=== PATIENT | female | born 1975 | race Caucasian/White ===

== ENCOUNTER 2019-03-03 04:05 | Emergency (ER) | payer SELFPAY ==
[2019-03-03 05:00] LABS: Absolute Lymphocytes (CBC) 2.1 K/uL (0.7-4.9); Basophils % 1.8 % (0-1.3); Hematocrit 26.8 % (36.0-45.0); Lymphocytes % 25.2 % (15.3-44.8); MPV 7.2 fL (7.6-11.3); RBC Red Blood Cell Count 3.89 M/uL (3.86-4.86)
[2019-03-03 05:18] LABS: ALT/SGPT 22 U/L (12-78); AST/SGOT 17 U/L (15-37); Albumin 3.5 g/dL (3.4-5.0); Alkaline Phosphatase 97 U/L (45-117); BUN Blood Urea Nitrogen 19 mg/dL (7-18); Bicarbonate 27 mmol/L (21-32); Bilirubin Direct 0.1 mg/dL (0-0.2); Bilirubin Total 0.2 mg/dL (0.2-1.0); CKMB Creatine Kinase MB 1.3 ng/mL (0.3-3.6); Creatine Phosphokinase 111 U/L (26-192); Glucose Level 79 mg/dL (74-106); Lipase 159 U/L (73-393); NT PRO-BNP 365 pg/mL (<125); Potassium 3.2 mmol/L (3.5-5.1); Protein, Total 7.6 g/dL (6.4-8.2); Sodium Level 142 mmol/L (136-145); Troponin (Emerg Dept Use Only) < 0.02 ng/mL (0.0-0.045)
[2019-03-03 05:49] LABS: Blood Morphology Comment NOTED (NOT SEEN); Platelet Estimate INCR; Urine White Blood Cell Casts OK
[2019-03-03 05:50] LABS: Hypochromasia 1+
--- NOTE | 2019-03-03 06:30 | EDPHYS ---
Physician Documentation [facility] Name: Gabriella Herman Age: 43 yrs Sex: Female : 1975 Arrival Date: 03/03/2019 Time: 04:07 Bed 14 Private MD: ED Physician Dago Tracy HPI: 03/03 04:42 This 43 yrs old Female presents to ER via Ambulatory with complaints of tw4 Abnormal labs, Shortness Of Breath. 04:42 The patient has shortness of breath with light activity. tw4 04:42 Onset: The symptoms/episode began/occurred 2 week(s) ago. Duration: The symptoms are tw4 continuous. The patient's shortness of breath is aggravated by exertion, is alleviated by sitting up. Associated signs and symptoms: The patient has no apparent associated signs or symptoms. Severity of symptoms: At their worst the symptoms were moderate in the emergency department the symptoms have improved. The patient has not experienced similar symptoms in the past. Historical: - Allergies: 04:10 No Known Allergies; jb4 - Home Meds: 04:10 amlodipine 5 mg tab [Active]; jb4 - PMHx: 04:10 Hypertension; jb4 - PSHx: 04:10 Tubal ligation; jb4 - Immunization history:: Adult Immunizations up to date. - Social history:: Smoking status: Patient uses tobacco products, smokes one pack cigarettes per day. Patient uses street drugs, Methamphetamine (Meth) Patient/guardian denies using alcohol. - Ebola Screening: : No symptoms or risks identified at this time. ROS: 04:42 Constitutional: Negative for fever, chills, and weight loss, Eyes: Negative for injury, tw4 pain, redness, and discharge, Cardiovascular: Negative for chest pain, palpitations, and edema, Abdomen/GI: Negative for abdominal pain, nausea, vomiting, diarrhea, and constipation, Back: Negative for injury and pain, MS/Extremity: Negative for injury and deformity. 04:42 Respiratory: Positive for shortness of breath, Negative for cough, dyspnea on exertion, hemoptysis, orthopnea, pleurisy. Exam: 04:42 Constitutional: This is a well developed, well nourished patient who is awake, alert, tw4 and in no acute distress. Head/Face: Normocephalic, atraumatic. Chest/axilla: Normal chest wall appearance and motion. Nontender with no deformity. No lesions are appreciated. Cardiovascular: Regular rate and rhythm with a normal S1 and S2. No gallops, murmurs, or rubs. Normal PMI, no JVD. No pulse deficits. Respiratory: Lungs have equal breath sounds bilaterally, clear to auscultation and percussion. No rales, rhonchi or wheezes noted. No increased work of breathing, no retractions or nasal flaring. Abdomen/GI: Soft, non-tender, with normal bowel sounds. No distension or tympany. No guarding or rebound. No evidence of tenderness throughout. Back: No spinal tenderness. No costovertebral tenderness. Full range of motion. MS/ Extremity: Pulses equal, no cyanosis. Neurovascular intact. Full, normal range of motion. Neuro: Awake and alert, GCS 15, oriented to person, place, time, and situation. Cranial nerves II-XII grossly intact. Motor strength 5/5 in all extremities. Sensory grossly intact. Cerebellar exam normal. Normal gait. Vital Signs: 04:10 BP 181 / 101; Pulse 99; Resp 16; Temp 97.9(O); Pulse Ox 100% on R/A; Weight 67.59 kg jb4 (R); Height 5 ft. 4 in. (162.56 cm) (R); Pain 3/10; 05:15 BP 143 / 79; Pulse 91; Resp 14; Pulse Ox 97% on R/A; jb4 06:00 BP 158 / 90; Pulse 84; Resp 16; Pulse Ox 98% on R/A; jb4 04:10 Body Mass Index 25.58 (67.59 kg, 162.56 cm) jb4 MDM: 04:13 Patient medically screened. tw4 04:42 Differential diagnosis: Anemia asthma, Chronic Obstructive Pulmonary Disease Myocardial tw4 Infarction pneumonia, reactive airway disease. Data reviewed: vital signs, nurses notes. 05:50 Counseling: I had a detailed discussion with the patient and/or guardian regarding: the tw4 historical points, exam findings, and any diagnostic results supporting the discharge/admit diagnosis. 03/03 04:14 Order name: Blood Culture Adult (2) tw4 03/03 04:14 Order name: BMP tw4 03/03 04:14 Order name: CBC with Diff 4 03/03 04:14 Order name: Ckmb 03/03 04:14 Order name: CPK 03/03 04:14 Order name: D-Dimer 03/03 04:14 Order name: Hepatic Function 03/03 04:14 Order name: Lipase; Complete Time: 06:18 03/03 06:19 Interpretation: Within normal limits: LIP 159. 03/03 04:14 Order name: Magnesium; Complete Time: 06:18 03/03 04:14 Order name: NT PRO-BNP; Complete Time: 06:18 03/03 04:14 Order name: PT-INR; Complete Time: 06:18 03/03 04:14 Order name: Ptt, Activated; Complete Time: 06:18 03/03 04:14 Order name: Troponin (emerg Dept Use Only); Complete Time: 06:18 03/03 04:15 Order name: Blood Culture 03/03 04:14 Order name: XRAY CXR (1 view) 03/03 04:14 Order name: EKG; Complete Time: 04:15 03/03 04:14 Order name: Cardiac monitoring; Complete Time: 05:03 03/03 04:14 Order name: EKG - Nurse/Tech; Complete Time: 05:03 03/03 04:14 Order name: IV Saline Lock; Complete Time: 05:03 03/03 04:14 Order name: Labs collected and sent; Complete Time: 05:09 03/03 04:14 Order name: O2 Per Protocol; Complete Time: 05:09 03/03 04:14 Order name: O2 Sat Monitoring; Complete Time: 05:10 03/03 04:15 Order name: Basic Metabolic Panel; Complete Time: 06:18 03/03 06:18 Interpretation: Normal except: K 3.2; BUN 19; CL 109; GFR 56. 03/03 04:15 Order name: CBC with Automated Diff; Complete Time: 06:18 MS 03/03 06:19 Interpretation: Normal except: HGB 8.6; HCT 26.8; MCV 68.9; MCH 22.0; PLT 725; RDW tw4 17.8; MPV 7.2; BASO% 1.8. 03/03 04:15 Order name: CKMB Creatine Kinase MB; Complete Time: 06:18 EDMS 03/03 04:15 Order name: Creatine Phosphokinase; Complete Time: 06:18 EDMS 03/03 04:15 Order name: D-Dimer; Complete Time: 06:18 EDMS 03/03 06:19 Interpretation: Abnormal: D-DIMER 1975. tw4 03/03 04:15 Order name: Liver (Hepatic) Function; Complete Time: 06:18 EDMS 03/03 06:19 Interpretation: Normal except: GLOB 4.1; A/G 0.9. tw4 03/03 05:13 Order name: CBC Smear Scan; Complete Time: 06:18 EDMS EC:57 Rate is 88 beats/min. Rhythm is regular. QRS [place] is Normal. MN interval is normal. QT tw4 interval is normal. No Q waves. T waves are Normal. No ST changes noted. Clinical impression: NSR w/ Non-specific ST/T Changes. Interpreted by me. Reviewed by me. Administered Medications: No medications were administered Disposition: 03/03/19 06:29 Discharged to Home. Impression: Dyspnea, Anemia in chronic diseases classified elsewhere. - Condition is Stable. - Discharge Instructions: Anemia, Nonspecific, Shortness of Breath, [id number]. - Medication Reconciliation Form, Thank You Letter, Antibiotic Education, Prescription Opioid Use form. - Follow up: Private Physician; When: Upon discharge from the Emergency Department; Reason: Recheck today's complaints, Continuance of care. - Problem is new. - Symptoms have improved. Signatures: Dispatcher [facility] Lira RN RN jb4 Dago Tracy MD MD tw4 Corrections: (The following items were deleted from the chart) 06:54 06:29 03/03/2019 06:29 Discharged to Home. Impression: Dyspnea; Anemia in chronic jb4 diseases classified elsewhere. Condition is Stable. Forms are Medication Reconciliation Form, Thank You Letter, Antibiotic Education, Prescription Opioid Use. Follow up: Private Physician; When: Upon discharge from the Emergency Department; Reason: Recheck today's complaints, Continuance of care. Problem is new. Symptoms have improved. tw4
--- NOTE | 2019-03-03 06:30 | ER ---
Nurse's Notes [facility] Name: Gabriella Herman Age: 43 yrs Sex: Female : 1975 Arrival Date: 03/03/2019 Time: 04:07 Bed 14 Private MD: Diagnosis: Dyspnea;Anemia in chronic diseases classified elsewhere Presentation: 03/03 04:10 Presenting complaint: Patient states: I was recently at the clinic and had some blood jb4 work done after I told them I was in pain. The called me back last night and told me my hemoglobin was low at 8.7, she said my platelets were very very high, and that I had blood in my urine. My lower back is also hurting. 04:10 Transition of care: patient was not received from another setting of care. Onset of jb4 symptoms was February 24, 2019. Risk Assessment: Do you want to hurt yourself or someone else? Patient reports no desire to harm self or others. Initial Sepsis Screen: Does the patient meet any 2 criteria? HR > 90 bpm. Yes Does the patient have a suspected source of infection? No. Patient's initial sepsis screen is negative. Care prior to arrival: None. 04:10 Method Of Arrival: Ambulatory jb4 04:10 Acuity: YONIS 3 jb4 Triage Assessment: 04:10 Respiratory: Reports shortness of breath on exertion Onset: The symptoms/episode jb4 began/occurred gradually, the patient has mild shortness of breath. Historical: - Allergies: 04:10 No Known Allergies; jb4 - Home Meds: 04:10 amlodipine 5 mg tab [Active]; jb4 - PMHx: 04:10 Hypertension; jb4 - PSHx: 04:10 Tubal ligation; jb4 - Immunization history:: Adult Immunizations up to date. - Social history:: Smoking status: Patient uses tobacco products, smokes one pack cigarettes per day. Patient uses street drugs, Methamphetamine (Meth) Patient/guardian denies using alcohol. - Ebola Screening: : No symptoms or risks identified at this time. Screenin:10 Abuse screen: Denies threats or abuse. Nutritional screening: No deficits noted. jb4 Tuberculosis screening: No symptoms or risk factors identified. Fall Risk None identified. Assessment: 04:10 General: Appears in no apparent distress. uncomfortable, Behavior is cooperative, jb4 anxious. Pain: Complains of pain in low back area Pain does not radiate. Pain currently is 3 out of 10 on a pain scale. Neuro: Level of Consciousness is awake, alert, obeys commands, Oriented to person, place, time, situation. Cardiovascular: Patient's skin is warm and dry. Respiratory: Airway is patent Respiratory effort is even, unlabored, Respiratory pattern is regular, symmetrical, Breath sounds are clear bilaterally. GI: No signs and/or symptoms were reported involving the gastrointestinal system. : No signs and/or symptoms were reported regarding the genitourinary system. EENT: No signs and/or symptoms were reported regarding the EENT system. Derm: Skin is intact, Skin is pink, warm \T\ dry. Musculoskeletal: Circulation, motion, and sensation intact. Range of motion: intact in all extremities. 04:30 Cardiovascular: Rhythm is sinus rhythm. jb4 05:29 Reassessment: Patient appears in no apparent distress at this time. Patient and/or jb4 family updated on plan of care and expected duration. Pain level reassessed. Patient is alert, oriented x 3, equal unlabored respirations, skin warm/dry/pink. 06:48 Reassessment: Patient appears in no apparent distress at this time. Patient and/or jb4 family updated on plan of care and expected duration. Pain level reassessed. Patient is alert, oriented x 3, equal unlabored respirations, skin warm/dry/pink. PT verbalized understanding of d/c and follow up instructions. Verbalized no questions or concerns. Vital Signs: 04:10 BP 181 / 101; Pulse 99; Resp 16; Temp 97.9(O); Pulse Ox 100% on R/A; Weight 67.59 kg jb4 (R); Height 5 ft. 4 in. (162.56 cm) (R); Pain 3/10; 05:15 BP 143 / 79; Pulse 91; Resp 14; Pulse Ox 97% on R/A; jb4 06:00 BP 158 / 90; Pulse 84; Resp 16; Pulse Ox 98% on R/A; jb4 04:10 Body Mass Index 25.58 (67.59 kg, 162.56 cm) jb4 ED Course: 04:07 Patient arrived in ED. ds1 04:10 Arm band placed on right wrist. jb4 04:10 Patient has correct armband on for positive identification. Bed in low position. Call jb4 light in reach. Side rails up X 1. Pulse ox on. NIBP on. 04:13 Dago Tracy MD is Attending Physician. tw4 04:17 Mk Pittman, RN is Primary Nurse. jb4 04:25 Triage completed. jb4 04:30 Inserted saline lock: 20 gauge in right antecubital area, using aseptic technique. ds4 Blood collected. 04:51 XRAY CXR (1 view) In Process Unspecified. EDMS 05:11 Liver (Hepatic) Function Sent. ds4 05:11 D-Dimer Sent. ds4 05:11 Blood Culture Sent. ds4 05:11 Basic Metabolic Panel Sent. ds4 05:11 CBC with Automated Diff Sent. ds4 05:11 CKMB Creatine Kinase MB Sent. ds4 05:11 Creatine Phosphokinase Sent. ds4 05:11 Blood Culture Adult (2) Sent. ds4 05:11 Hepatic Function Sent. ds4 05:11 BMP Sent. ds4 05:12 D-Dimer Sent. ds4 05:12 CBC with Diff Sent. ds4 05:12 Ckmb Sent. ds4 05:12 CPK Sent. ds4 05:12 Lipase Sent. ds4 05:12 Magnesium Sent. ds4 05:12 NT PRO-BNP Sent. ds4 05:12 PT-INR Sent. ds4 05:12 Ptt, Activated Sent. ds4 05:12 Troponin (emerg Dept Use Only) Sent. ds4 05:31 Notified ED physician of a critical lab result(s). D-dimer 1975. jb4 06:51 No provider procedures requiring assistance completed. Patient did not have IV access jb4 during this emergency room visit. Administered Medications: No medications were administered Outcome: 06:29 Discharge ordered by . tw4 06:51 Discharged to home ambulatory, with friend. jb4 06:51 Condition: stable 06:51 Discharge instructions given to patient, Instructed on discharge instructions, follow up and referral plans. Demonstrated understanding of instructions, follow-up care. 06:54 Patient left the ED. jb4 Signatures: Dispatcher [employer] [facility] Vivi Crews ds1 Hamzah Meza ds4 Mk Pittman, RN RN jb4 Dago Tracy MD MD tw4 Corrections: (The following items were deleted from the chart) 06:49 06:48 Reassessment: Patient appears in no apparent distress at this time. Patient jb4 and/or family updated on plan of care and expected duration. Pain level reassessed. Patient is alert, oriented x 3, equal unlabored respirations, skin warm/dry/pink. jb4
--- NOTE | 2019-03-03 07:43 | EKG ---
Test Date: 2019-03-03 Test Time: 04:51:14 Candy Maker: ZO MEASUREMENT RESULTS: Intervals: Rate: 88 SC: 132 QRSD: 96 QT: 386 QTc: 467 [place]: P: 11 SC: 132 QRS: -8 T: 89 INTERPRETIVE STATEMENTS: Normal sinus rhythm Minimal voltage criteria for LVH, may be normal variant Borderline ECG Compared to ECG 11/09/2015 11:50:08 Left ventricular hypertrophy now present Electronically Signed On 03-03-19 07:43:04 BAG LOADER by Timmy Velazquez
--- NOTE | 2019-03-03 08:45 | RAD REPORT ---
EXAM DESCRIPTION: RAD - Chest Single View - 03/03/2019 4:50 am CLINICAL HISTORY: SOB Chest pain. COMPARISON: Chest Single View dated 11/09/2015 FINDINGS: Portable technique limits examination quality. The lungs are grossly clear. The heart is normal in size. No displaced fractures. IMPRESSION: No acute intrathoracic process suspected.
[2019-03-03 08:59] VITALS: TEMP 97.9
[2019-03-03 09:02] VITALS: BP 158/90; O2SAT 98
== END 2019-03-03 06:54 | disposition home or self-care (01) ==
LOC: ER 04:05
DX: R06.00 Dyspnea, unspecified (principal); D63.8 Anemia in other chronic diseases classified elsewhere; I10 Essential (primary) hypertension
CPT/HCPCS: 36415; 71045; 80048; 80076; 82550; 82553; 83690; 83735; 83880; 84484; 85025; 85379; 85610; 85730; 87040; 93005; 99284

== ENCOUNTER 2019-03-09 11:37 | Emergency (ER) | payer SELFPAY ==
[2019-03-09] MEDS ORDERED: NA CHLORIDE 0.9% 2,000 ML ONE (11:54)
[2019-03-09] MEDS ORDERED: DIPHENHYDRAMINE 50 MG/ML VIAL ONE (11:54)
[2019-03-09] MEDS ORDERED: KETOROLAC 30 MG/ML INJ ONE (11:54)
[2019-03-09] MEDS ORDERED: METOCLOPRAMIDE 10 MG/2mL INJ ONE (11:54)
[2019-03-09 13:06] LABS: Urine Blood NEGATIVE (NEG); Urine Glucose TRACE (NEG); Urine Protein NEGATIVE (NEG)
[2019-03-09 13:13] LABS: Absolute Lymphocytes (CBC) 2.6 K/uL (0.7-4.9); Basophils % 1.1 % (0-1.3); Hematocrit 28.5 % (36.0-45.0); Lymphocytes % 14.3 % (15.3-44.8); MPV 7.2 fL (7.6-11.3); RBC Red Blood Cell Count 4.18 M/uL (3.86-4.86)
[2019-03-09 13:14] LABS: Protime INR 1.03
[2019-03-09] MEDS ORDERED: CEFTRIAXONE/SWI 1gm 1 GM/10 ML SYR ONE (13:28)
[2019-03-09 13:30] LABS: ALT/SGPT 26 U/L (12-78); AST/SGOT 23 U/L (15-37); Alkaline Phosphatase 91 U/L (45-117); BUN Blood Urea Nitrogen 16 mg/dL (7-18); Bicarbonate 23 mmol/L (21-32); Bilirubin Total 0.3 mg/dL (0.2-1.0); Glucose Level 140 mg/dL (74-106); Potassium 3.1 mmol/L (3.5-5.1); Protein, Total 7.9 g/dL (6.4-8.2); Sodium Level 141 mmol/L (136-145)
--- NOTE | 2019-03-09 13:30 | RAD REPORT ---
EXAM DESCRIPTION: CT - Head Brain Wo Cont - 03/09/2019 1:14 pm CLINICAL HISTORY: Headache COMPARISON: 2016 TECHNIQUE: Computed axial tomography of the head was obtained. IV contrast was not requested. All CT scans are performed using dose optimization technique as appropriate and may include automated exposure control or mA/KV adjustment according to patient size. FINDINGS: Subarachnoid blood is present within right and left sylvian fissures as well as frontal lo be sulci and the region of the [place]. Ventricles have increased in size since the prior exam and probably are mildly dilated. No extra-axial fluid collection is noted. Fluid within the sinuses/ mastoids is not seen. IMPRESSION: Bilateral subarachnoid blood. Ruptured aneurysm in the region the [place] of the [place] i s considered most likely Dr Mcfarlane was notified 1:20 p.m. March 09, 2019
[2019-03-09 13:34] LABS: Platelet Estimate INCR; White Blood Cell Scan OK
[2019-03-09 13:35] LABS: Blood Morphology Comment NOTED (NOT SEEN); Hypochromasia 1+
[2019-03-09] MEDS ORDERED: niMODipine 30 MG CAP PO ONE (13:42)
[2019-03-09] MEDS ORDERED: Nicardipine/NS 25 MG/250 ML KIT IV ONE (13:42)
--- NOTE | 2019-03-09 13:42 | EDPHYS ---
Physician Documentation [facility] Name: Gabriella Herman Age: 43 yrs Sex: Female : 1975 Arrival Date: 03/09/2019 Time: 11:41 Bed 26 Private MD: ED Physician Siva Mcfarlane HPI: 03/09 13:38 This 43 yrs old Female presents to ER via EMS with complaints of Headache. ma2 13:38 The patient complains of pain to the forehead. The patient describes the headache as ma2 pounding. Onset: The symptoms/episode began/occurred gradually, 1 day(s) ago. Severity of symptoms: At its worst the pain was moderate, in the emergency department the pain is unchanged. Headache History: Denies prior headaches. The patient has not experienced similar symptoms in the past. Historical: - Allergies: 11:45 No Known Allergies; em - Home Meds: 11:45 amlodipine 5 mg tab [Active]; em - PMHx: 11:45 Hypertension; em - PSHx: 11:45 Tubal ligation; em - Immunization history:: Adult Immunizations up to date. - Social history:: Smoking status: Patient/guardian denies using alcohol, street drugs, The patient lives with family. - Ebola Screening: : Patient negative for fever greater than or equal to 101.5 degrees Fahrenheit, and additional compatible Ebola Virus Disease symptoms Patient denies exposure to infectious person Patient denies travel to an Ebola-affected area in the 21 days before illness onset No symptoms or risks identified at this time. - Family history:: not pertinent. - Hospitalizations: : No recent hospitalization is reported. ROS: 13:38 Constitutional: Negative for fever, chills, and weight loss. ma2 13:38 All other systems are negative. Exam: 13:38 Constitutional: This is a well developed, well nourished patient who is awake, alert, ma2 and in no acute distress. Eyes: Pupils equal round and reactive to light, extra-ocular motions intact. Lids and lashes normal. Conjunctiva and sclera are non-icteric and not injected. Cornea within normal limits. Periorbital areas with no swelling, redness, or edema. ENT: Nares patent. No nasal discharge, no septal abnormalities noted. Tympanic membranes are normal and external auditory canals are clear. Oropharynx with no redness, swelling, or masses, exudates, or evidence of obstruction, uvula midline. Mucous membranes moist. Chest/axilla: Normal chest wall appearance and motion. Nontender with no deformity. No lesions are appreciated. Cardiovascular: Regular rate and rhythm with a normal S1 and S2. No gallops, murmurs, or rubs. Normal PMI, no JVD. No pulse deficits. Respiratory: Lungs have equal breath sounds bilaterally, clear to auscultation and percussion. No rales, rhonchi or wheezes noted. No increased work of breathing, no retractions or nasal flaring. Abdomen/GI: Soft, non-tender, with normal bowel sounds. No distension or tympany. No guarding or rebound. No evidence of tenderness throughout. Skin: Warm, dry with normal turgor. Normal color with no rashes, no lesions, and no evidence of cellulitis. MS/ Extremity: Pulses equal, no cyanosis. Neurovascular intact. Full, normal range of motion. Neuro: Awake and alert, GCS 15, oriented to person, place, time, and situation. Cranial nerves II-XII grossly intact. Motor strength 5/5 in all extremities. Sensory grossly intact. Cerebellar exam normal. Normal gait. Vital Signs: 11:45 BP 170 / 85; Pulse 71; Resp 18; Temp 97.5(O); Pulse Ox 99% on R/A; Weight 68.04 kg; em Height 5 ft. 4 in. (162.56 cm); Pain 10/10; 12:30 BP 182 / 79; Pulse 80; Resp 16; Pulse Ox 99% on R/A; Pain 10/10; em 13:29 BP 177 / 98; Pulse 75; Resp 18; Pulse Ox 100% on R/A; Pain 8/10; em 13:51 BP 153 / 89; Pulse 70; Resp 18; Pulse Ox 100% on R/A; Pain 7/10; em 13:54 BP 163 / 85; Pulse 70; Resp 18; Pulse Ox 100% on R/A; em 13:57 BP 115 / 62; Pulse 87; em 14:00 BP 101 / 52; Pulse 85; em 14:20 BP 109 / 54; Pulse 68; em 14:30 BP 129 / 69; Pulse 69; em 14:36 BP 111 / 57; Pulse 64; em 14:42 BP 119 / 54; Pulse 73; em 14:48 BP 115 / 51; Pulse 75; em 14:51 BP 107 / 51; Pulse 64; Temp 97.7; Pulse Ox 98% on 2 lpm NC; Pain 4/10; em 11:45 Body Mass Index 25.75 (68.04 kg, 162.56 cm) em [place] Coma Score: 13:38 Eye Response: spontaneous(4). Verbal Response: oriented(5). Motor Response: obeys ma2 commands(6). Total: 15. MDM: 11:43 Patient medically screened. ma2 13:38 Differential diagnosis: temporal arteritis, tension headache, trigeminal neuralgia, ma2 vasomotor headache. Data reviewed: vital signs, nurses notes. Counseling: I had a detailed discussion with the patient and/or guardian regarding: the historical points, exam findings, and any diagnostic results supporting the discharge/admit diagnosis, the presence of at least one elevated blood pressure reading (>120/80) during this emergency department visit. Response to treatment: the patient's symptoms have markedly improved after treatment. 13:42 ED course: needs neurosurgery, not available in our hospital will transfer for higher [facility] level of care, bp is 170/80 at this time . 13:42 ED course: will start cardine drip. [facility] 03/09 11:48 Order name: CBC with Diff; Complete Time: 13:36 [facility] 03/09 11:48 Order name: CMP; Complete Time: 13:36 [facility] 03/09 11:48 Order name: CT Head Brain wo Cont; Complete Time: 13:36 [facility] 03/09 11:48 Order name: PT-INR; Complete Time: 13:27 va2 03/09 12:24 Order name: Urine Dipstick--Ancillary (enter results); Complete Time: 13:11 bd 03/09 13:35 Order name: CBC Smear Scan; Complete Time: 13:36 EDMO 03/09 11:48 Order name: Urine Dipstick-Ancillary (obtain specimen); Complete Time: 12:21 ma2 Administered Medications: Discontinued: niCARdipine (25mg/250ml) 5 mg/hr IV at calculated rate continuous; Adjust 2.5 mg/hr every 10 minutes to keep SBP between 140 mmHg and 120 mmHg. Range 0 to 15 mg/hr. Wean to minimum required dose. 12:15 Drug: Benadryl 50 mg Route: IVP; Site: right hand; em 13:41 Follow up: Response: No adverse reaction em 12:17 Drug: TORadol 30 mg Route: IVP; Site: right hand; em 13:40 Follow up: Response: No adverse reaction; Pain is unchanged, physician notified em 12:20 Drug: NS 0.9% 2000 ml Route: IV; Rate: 1 bolus; Site: right hand; em 14:30 Follow up: IV Status: Completed infusion; IV Intake: 1000ml em 12:20 Drug: Reglan 20 mg Route: IVP; Site: right hand; em 13:41 Follow up: Response: No adverse reaction em 13:37 Not Given (na): Labetalol 2 mg/min IVP continuous; Adjust 0.5 mg/min every 15 minutes ma2 to keep SBP between 140 mmHg and 120 mmHg as tolerated and to keep HR greater than 55. Range: 0-8 mg/min. 13:45 Drug: niMODipine 60 mg Route: PO; em 14:39 Follow up: Response: No adverse reaction em 13:45 Drug: niCARdipine (25mg/250ml) 5 mg/hr Route: IV; Rate: calculated rate; Site: right em hand; 14:42 Follow up: Drip started at 1mg/hr, increased to 2mg at 1354, drip paused at 1357. Order aa5 to d/c yumikoene, BP maintains <120 systolic. 13:57 Drug: Rocephin 1 grams Route: IV; Rate: calculated rate; Site: left forearm; em 14:37 Follow up: Response: No adverse reaction; IV Status: Completed infusion; IV Intake: 10mlem 14:35 Drug: fentaNYL (PF) 100 mcg Route: IVP; Site: right hand; em 15:01 Follow up: Response: No adverse reaction; Marked relief of symptoms; Pain is decreased; em RASS: Alert and Calm (0) Disposition: 03/09/19 13:42 Transfer ordered to [facility]. Diagnosis is Nontraumatic subarachnoid hemorrhage, unspecified. - Reason for transfer: Higher level of care. - Accepting physician is Dr. Valdez. - Condition is Critical. - Problem is new. - Symptoms are unchanged. Critical care time excluding procedures: 14:05 Critical care time: Bedside Care: 30 minutes, Consultation: 10 minutes, Family ma2 Intervention: 5 minutes. Total time: 45 minutes Signatures: Dispatcher [employer] Jagjit Jeter, RN Siva Durham MD MD ma2 Maureen Charles RN aa5 Corrections: (The following items were deleted from the chart) 14:05 13:42 03/09/2019 13:42 Transfer ordered to [facility]. Diagnosis is ma2 Nontraumatic subarachnoid hemorrhage, unspecified. Reason for transfer: Higher level of care. [facility]. Condition is Critical. Problem is new. Symptoms are unchanged. ma2 15:10 14:05 03/09/2019 13:42 Transfer ordered to [facility]. Diagnosis is em Nontraumatic subarachnoid hemorrhage, unspecified. Reason for transfer: Higher level of care. Accepting physician is Dr. Valdez. Condition is Critical. Problem is new. Symptoms are unchanged. ma2
--- NOTE | 2019-03-09 13:42 | ER ---
Nurse's Notes [facility] Name: Gabriella Herman Age: 43 yrs Sex: Female : 1975 Arrival Date: 03/09/2019 Time: 11:41 Bed 26 Private MD: Diagnosis: Nontraumatic subarachnoid hemorrhage, unspecified Presentation: 03/09 11:42 Presenting complaint: EMS states: called out for frontal headache that started this em morning, was recently seen in the ER for high blood pressure, vomited once en route to hospital, given 4 mg Zofran, BP 190/90, HR 95, BGL 140. Transition of care: patient was not received from another setting of care. Onset of symptoms was March 09, 2019. Risk Assessment: Do you want to hurt yourself or someone else? Patient reports no desire to harm self or others. Initial Sepsis Screen: Does the patient meet any 2 criteria? No. Patient's initial sepsis screen is negative. Does the patient have a suspected source of infection? No. Patient's initial sepsis screen is negative. Care prior to arrival: Medication(s) given: zofran 4 mg, IV initiated. 20 GA, in the left hand. 11:42 Method Of Arrival: EMS: [facility] em 11:42 Acuity: YONIS 3 em Triage Assessment: 11:45 Headache History: Denies prior headaches. em 15:03 Pain: Also complains of. em Historical: - Allergies: 11:45 No Known Allergies; em - Home Meds: 11:45 amlodipine 5 mg tab [Active]; em - PMHx: 11:45 Hypertension; em - PSHx: 11:45 Tubal ligation; em - Immunization history:: Adult Immunizations up to date. - Social history:: Smoking status: Patient/guardian denies using alcohol, street drugs, The patient lives with family. - Ebola Screening: : Patient negative for fever greater than or equal to 101.5 degrees Fahrenheit, and additional compatible Ebola Virus Disease symptoms Patient denies exposure to infectious person Patient denies travel to an Ebola-affected area in the 21 days before illness onset No symptoms or risks identified at this time. - Family history:: not pertinent. - Hospitalizations: : No recent hospitalization is reported. Screenin:45 Abuse screen: Denies threats or abuse. Nutritional screening: No deficits noted. em Tuberculosis screening: No symptoms or risk factors identified. Fall Risk None identified. 13:30 Patient has been NPO before screening. The patient is alert, able to follow commands. em The patient does not exhibit slurred or garbled speech The patient is not exhibiting difficulty speaking. The patient does not exhibit difficulty understanding words. The patient is able to swallow own secretions with no drooling or need for suction. Patient tolerated one teaspoon of water. No drooling, immediate coughing, gurgling, or clearing of the throat was noted. The patient tolerated 90mL of water. No drooling, immediate coughing, gurgling, or clearing of the throat was noted. 13:30 The patient passed the bedside swallow screening. Oral medications may be given as em ordered. Contact Physician for further diet orders. Provider notified of bedside swallow screening results: Siva Mcfarlane MD. Assessment: 11:45 General: Appears in no apparent distress. uncomfortable, Denies fever. Pain: Complains em of pain in forehead Pain currently is 10 out of 10 on a pain scale. Pain began 1 hour ago. Neuro: Level of Consciousness is awake, alert, obeys commands, Oriented to person, place, time, situation, Appropriate for age Loss Prevention Agent are equal bilaterally Moves all extremities. Gait is steady, Speech is normal, Reports dizziness, headache photophobia. Cardiovascular: Capillary refill < 3 seconds Patient's skin is warm and dry. Respiratory: Airway is patent Respiratory effort is even, unlabored, Respiratory pattern is regular, symmetrical. GI: Reports nausea, vomiting. Derm: Skin is intact, is healthy with good turgor, Skin is pink, warm \T\ dry. Musculoskeletal: Capillary refill < 3 seconds, Range of motion: intact in all extremities. 12:30 Reassessment: Patient and/or family updated on plan of care and expected duration. Pain em level reassessed. Patient is alert, oriented x 3, equal unlabored respirations, skin warm/dry/pink. reports medication has helped slightly, nausea has improved. 13:30 Reassessment: Patient appears in no apparent distress at this time. Patient and/or em family updated on plan of care and expected duration. Pain level reassessed. Patient is alert, oriented x 3, equal unlabored respirations, skin warm/dry/pink. rates pain 7/10, provider notified. 14:40 Reassessment: Patient and/or family updated on plan of care and expected duration. Pain em level reassessed. Patient is alert, oriented x 3, equal unlabored respirations, skin warm/dry/pink. reports pain is 4/10, saturation 94% RA, placed on NC at 2 LPM Patient states feeling better. 14:45 Reassessment: report given to MARK Witt at [facility], pending life flight. em 15:00 Reassessment: report given to MARK Bernstein life flight. em Vital Signs: 11:45 BP 170 / 85; Pulse 71; Resp 18; Temp 97.5(O); Pulse Ox 99% on R/A; Weight 68.04 kg; em Height 5 ft. 4 in. (162.56 cm); Pain 10/10; 12:30 BP 182 / 79; Pulse 80; Resp 16; Pulse Ox 99% on R/A; Pain 10/10; em 13:29 BP 177 / 98; Pulse 75; Resp 18; Pulse Ox 100% on R/A; Pain 8/10; em 13:51 BP 153 / 89; Pulse 70; Resp 18; Pulse Ox 100% on R/A; Pain 7/10; em 13:54 BP 163 / 85; Pulse 70; Resp 18; Pulse Ox 100% on R/A; em 13:57 BP 115 / 62; Pulse 87; em 14:00 BP 101 / 52; Pulse 85; em 14:20 BP 109 / 54; Pulse 68; em 14:30 BP 129 / 69; Pulse 69; em 14:36 BP 111 / 57; Pulse 64; em 14:42 BP 119 / 54; Pulse 73; em 14:48 BP 115 / 51; Pulse 75; em 14:51 BP 107 / 51; Pulse 64; Temp 97.7; Pulse Ox 98% on 2 lpm NC; Pain 4/10; em 11:45 Body Mass Index 25.75 (68.04 kg, 162.56 cm) em Marion Coma Score: 13:38 Eye Response: spontaneous(4). Verbal Response: oriented(5). Motor Response: obeys ma2 commands(6). Total: 15. ED Course: 11:41 Patient arrived in ED. em 11:43 Siva Mcfarlane MD is Attending Physician. ma2 11:44 Triage completed. em 11:45 Arm band placed on. em 11:45 Patient has correct armband on for positive identification. Placed in gown. Bed in low em position. Call light in reach. Side rails up X2. Adult w/ patient. Pulse ox on. NIBP on. 11:49 Jagjit Curiel, RN is Primary Nurse. em 13:14 CT Head Brain wo Cont In Process Unspecified. EDMS 13:41 attempted transfer to [facility]. bd 13:50 Inserted saline lock: 22 gauge in left forearm, using aseptic technique. em 15:03 No provider procedures requiring assistance completed. Patient transferred, IV remains em in place. Administered Medications: Discontinued: niCARdipine (25mg/250ml) 5 mg/hr IV at calculated rate continuous; Adjust 2.5 mg/hr every 10 minutes to keep SBP between 140 mmHg and 120 mmHg. Range 0 to 15 mg/hr. Wean to minimum required dose. 12:15 Drug: Benadryl 50 mg Route: IVP; Site: right hand; em 13:41 Follow up: Response: No adverse reaction em 12:17 Drug: TORadol 30 mg Route: IVP; Site: right hand; em 13:40 Follow up: Response: No adverse reaction; Pain is unchanged, physician notified em 12:20 Drug: NS 0.9% 2000 ml Route: IV; Rate: 1 bolus; Site: right hand; em 14:30 Follow up: IV Status: Completed infusion; IV Intake: 1000ml em 12:20 Drug: Reglan 20 mg Route: IVP; Site: right hand; em 13:41 Follow up: Response: No adverse reaction em 13:37 Not Given (na): Labetalol 2 mg/min IVP continuous; Adjust 0.5 mg/min every 15 minutes ma2 to keep SBP between 140 mmHg and 120 mmHg as tolerated and to keep HR greater than 55. Range: 0-8 mg/min. 13:45 Drug: niMODipine 60 mg Route: PO; em 14:39 Follow up: Response: No adverse reaction em 13:45 Drug: niCARdipine (25mg/250ml) 5 mg/hr Route: IV; Rate: calculated rate; Site: right em hand; 14:42 Follow up: Drip started at 1mg/hr, increased to 2mg at 1354, drip paused at 1357. Order aa5 to d/c cardene, BP maintains <120 systolic. 13:57 Drug: Rocephin 1 grams Route: IV; Rate: calculated rate; Site: left forearm; em 14:37 Follow up: Response: No adverse reaction; IV Status: Completed infusion; IV Intake: 10mlem 14:35 Drug: fentaNYL (PF) 100 mcg Route: IVP; Site: right hand; em 15:01 Follow up: Response: No adverse reaction; Marked relief of symptoms; Pain is decreased; em RASS: Alert and Calm (0) Intake: 14:30 IV: 1000ml; Total: 1000ml. em 14:37 IV: 10ml; Total: 1010ml. em Outcome: 13:42 ER care complete, transfer ordered by MD. harding 15:03 Transferred by helicopter to [facility], Transfer form completed. em X-rays sent w/ patient. 15:03 Condition: good 15:03 Instructed on the need for transfer, Demonstrated understanding of instructions. 15:10 Patient left the ED. em Signatures: Dispatcher [employer] EDMS Carmel Jones Edgar, RN RN em Calderon, Audri, RN RN [email or web address] Siva Mcfarlane MD MD ma2 Corrections: (The following items were deleted from the chart) 03/10 07:23 03/09 14:51 Response: Marked relief of symptoms; IV Status: Order to discontinue aa5 infusion em 03/10 07:24 07:20 Drip started at 1mg/hr, increased to 2mg at 1354, drip paused at 1357. Order to aa5 d/c cardene, BP maintains <120 systolic. aa5
[2019-03-09] MEDS ORDERED: FENTANYL CITR 100 MCG/2 ML ONE (14:32)
[2019-03-09 19:18] VITALS: BP 107/51; TEMP 97.7; O2SAT 98
== END 2019-03-09 15:10 | disposition short-term general hospital (02) ==
LOC: ER 11:37
DX: I60.9 Nontraumatic subarachnoid hemorrhage, unspecified (principal); I10 Essential (primary) hypertension
CPT/HCPCS: 36415; 70450; 80053; 81003; 85025; 85610; 96361; 96365; 96375; 99285; J0696; J1200; J2765; J3010; J7030

== ENCOUNTER 2019-07-03 13:29 | Emergency (ER) | payer OTHER ==
--- OUTSIDE RECORDS SUMMARY | 2019-07-03 13:32 | XMS REPORT | Continuity of Care Document ---
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) [facility] Medications Medication Details Route Status Patient Ordering Order Source Instructions Provider Date losartan 50 mg 0 Active 06/24/19 [facility] oral tablet Refill(s) 20 [facility] Amlodipine 5 mg, PO, Active 06/24/19 [facility] Daily, 0 20 Neuro Refill(s) Allergies, Adverse Reactions, Alerts No Known Medication Allergies Immunizations No Data Provided for This Section Results No Data Provided for This Section Pathology Reports No Data Provided for This Section Diagnostic Reports No Data Provided for This Section Consultation Notes No Data Provided for This Section Discharge Summaries No Data Provided for This Section History and Physicals No Data Provided for This Section Vital Signs Vital Sign Value Date Comments Source Systolic (mm Hg) 175 06/24/2019 [facility] Tr[facility] Diastolic (mm Hg) 111 06/24/2019 [facility] Ne uro Heart Rate 85 06/24/2019 [facility] Neuro Respitory Rate 16 06/24/2019 [facility] Neuro Temperature Oral (F) 98.7 F 06/24/2019 [facility] Neuro Encounters Location Location Encounter Encounter Reason Attending ADM [place] Stat us Source Details Type Number For Provider Date Date Visit [facility] [id number] [place] 06/23 06/24 [facility] Neurology [place] /2019 [facility] [place] [facility] [id number] [place] 06/30 Active [facility] [place] [facility] [id number] [place] 08/04 Active [facility] Sameer Procedures Procedure Code Date Perfomer Comments Source Coil procedure [id number] [facility] Ne uro Assessment and Plan No Data Provided for This Section Plan of Care No Data Provided for This Section Social History Social History Date Source Social History TypeResponse 06/24/2019 [facility] Employment/School 1 Smoking Status Current every day smoker; Type: Cigarett es; Exposure to Tobacco Smoke Unable to obtain; Cigarette Smoking Last 365 Days Unable to obtain; Reg Smoking Cessation Counseling Yes2 entered on: 06/24/19 1May release medical information to Rufino Zarateiend21/2 a pack to a pack aday Family History No Data Provided for This Section Advance Directives No Data Provided for This Section Functional Status No Data Provided for This Section
--- OUTSIDE RECORDS SUMMARY | 2019-07-03 13:32 | XMS REPORT | Clinical Summary ---
:1975 Author Organization [facility] Address [address] [place] [address] Care Team Providers Name Role Phone Unavailable Primary Care Provider Unavailable Allergies No Known Allergies Medications Medication Sig Dispensed Refills Start Date End Date Status niMODipine Take 2 capsules 168 capsule 0 03/17/2019 04/07/2019 (NIMOTOP) 30 MG (60 mg total) by capsule mouth every 4 (four) hours for 21 days. risperiDONE Take 1 tablet 60 tablet 0 03/17/2019 04/16/2019 Ex pired (RISPERDAL) 0.5 MG (0.5 mg total) tablet by mouth 2 (two) times daily for 30 days. 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 Subarachnoid hemorrhage 03/09/2019 Acute encephalopathy 03/09/2019 Hypertension 03/09/2019 Headache 03/09/2019 Encounters Date Type Specialty Care Team Description 03/11/2019 Travel 03/10/2019 Anesthesia Event Liz Fay MD 03/10/2019 Surgery Virtual, Surgeon PROCEDURE D ONE OUTSIDE OR 03/09/2019 - Hospital Encounter Intensive Care Hirzallah, Subarac hnoid hematoma, without loss of consciousness, initial encounter ([facility]); 03/17/2019 Siva Walker MD Delirium due to another medical conditio n; Bershad, Geoff 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 Last Filed Vital Signs Vital Sign Reading Time Taken Blood Pressure 153/82 03/17/2019 12:15 PM [facility] Pulse 80 03/17/2019 12:15 PM [facility] Temperature 36.8 C (98.3 F) 03/17/2019 12:15 PM [facility] Respiratory Rate 14 03/17/2019 12:15 PM [facility] Oxygen Saturation 98% 03/17/2019 11:15 AM [facility] Inhaled Oxygen Concentration 21% 03/15/2019 8:43 AM [facility] Weight 91.7 kg (202 lb 2.6 oz) 03/14/2019 12:00 AM [facility] Height 162.6 cm (5' 4") 03/09/2019 4:00 PM [facility] Body Mass Index 34.7 03/14/2019 12:00 AM [facility] Plan of Treatment Not on file Procedures Procedure Name Priority Date/Time Associated Comments Diagnosis RHYTHM STRIP - SCAN 03/19/2019 8:40 AM [facility] CBC W/PLT COUNT & AUTO Routine 03/17/2019 7:49 R esults for this DIFFERENTIAL AM [facility] procedure are i n the results section. BASIC METABOLIC PANEL Routine 03/17/2019 7:49 Re sults for this (7) AM [facility] procedure are i n the results section. CBC W/PLT COUNT & AUTO Routine 03/17/2019 7:49 R esults for this DIFFERENTIAL AM [facility] procedure are i n the results section. APTT Routine 03/17/2019 7:49 Results for this AM [facility] procedure are i n the results section. PROTHROMBIN TIME/INR Routine 03/17/2019 7:49 Res ults for this AM [facility] procedure are i n the results section. MAGNESIUM Routine 03/16/2019 12:08 Results for this PM [facility] procedure are i n the results section. CBC W/PLT COUNT & AUTO Routine 03/16/2019 4:28 R esults for this DIFFERENTIAL AM [facility] procedure are i n the results section. PHOSPHORUS Routine 03/16/2019 4:28 Results for this AM [facility] procedure are i n the results section. MAGNESIUM Routine 03/16/2019 4:28 Results for this AM [facility] procedure are i n the results section. CBC W/PLT COUNT & AUTO Routine 03/16/2019 4:28 R esults for this DIFFERENTIAL AM [facility] procedure are i n the results section. BASIC METABOLIC PANEL Routine 03/16/2019 4:28 Re sults for this (7) AM [facility] procedure are i n the results section. APTT Routine 03/16/2019 4:28 Results for this AM [facility] procedure are i n the results section. PROTHROMBIN TIME/INR Routine 03/16/2019 4:28 Res ults for this AM [facility] procedure are i n the results section. NEURO TCD - COMPLETE Routine 03/15/2019 9:50 Res ults for this PM [facility] procedure are i n the results section. CBC W/PLT COUNT & AUTO Routine 03/15/2019 3:45 R esults for this DIFFERENTIAL AM [facility] procedure are i n the results section. PHOSPHORUS Routine 03/15/2019 3:45 Results for this AM [facility] procedure are i n the results section. MAGNESIUM Routine 03/15/2019 3:45 Results for this AM [facility] procedure are i n the results section. CBC W/PLT COUNT & AUTO Routine 03/15/2019 3:45 R esults for this DIFFERENTIAL AM [facility] procedure are i n the results section. BASIC METABOLIC PANEL Routine 03/15/2019 3:45 Re sults for this (7) AM [facility] procedure are i n the results section. APTT Routine 03/15/2019 3:45 Results for this AM [facility] procedure are i n the results section. PROTHROMBIN TIME/INR Routine 03/15/2019 3:45 Res ults for this AM [facility] procedure are i n the results section. CBC W/PLT COUNT & AUTO Routine 03/14/2019 3:25 R esults for this DIFFERENTIAL AM [facility] procedure are i n the results section. PHOSPHORUS Routine 03/14/2019 3:25 Results for this AM [facility] procedure are i n the results section. MAGNESIUM Routine 03/14/2019 3:25 Results for this AM [facility] procedure are i n the results section. CBC W/PLT COUNT & AUTO Routine 03/14/2019 3:25 R esults for this DIFFERENTIAL AM [facility] procedure are i n the results section. BASIC METABOLIC PANEL Routine 03/14/2019 3:25 Re sults for this (7) AM [facility] procedure are i n the results section. APTT Routine 03/14/2019 3:25 Results for this AM [facility] procedure are i n the results section. PROTHROMBIN TIME/INR Routine 03/14/2019 3:25 Res ults for this AM [facility] procedure are i n the results section. MAGNESIUM Routine 03/13/2019 4:06 Results for this PM [facility] procedure are i n the results section. POTASSIUM Routine 03/13/2019 4:06 Results for this PM [facility] procedure are i n the results section. SODIUM Routine 03/13/2019 4:06 Results for this PM [facility] procedure are i n the results section. CBC W/PLT COUNT & AUTO Routine 03/13/2019 4:41 R esults for this DIFFERENTIAL AM [facility] procedure are i n the results section. PHOSPHORUS Routine 03/13/2019 4:41 Results for this AM [facility] procedure are i n the results section. MAGNESIUM Routine 03/13/2019 4:41 Results for this AM [facility] procedure are i n the results section. CBC W/PLT COUNT & AUTO Routine 03/13/2019 4:41 R esults for this DIFFERENTIAL AM [facility] procedure are i n the results section. BASIC METABOLIC PANEL Routine 03/13/2019 4:41 Re sults for this (7) AM [facility] procedure are i n the results section. APTT Routine 03/13/2019 4:41 Results for this AM [facility] procedure are i n the results section. PROTHROMBIN TIME/INR Routine 03/13/2019 4:41 Res ults for this AM [facility] procedure are i n the results section. POCT-GLUCOSE METER Routine 03/13/2019 12:12 Resul ts for this AM [facility] procedure are i n the results section. TRANSFUSION SERVICE 03/12/2019 9:06 REPORT - SCAN PM [facility] CBC W/PLT COUNT & AUTO Routine 03/12/2019 5:35 R esults for this DIFFERENTIAL AM [facility] procedure are i n the results section. PHOSPHORUS Routine 03/12/2019 5:35 Results for this AM [facility] procedure are i n the results section. MAGNESIUM Routine 03/12/2019 5:35 Results for this AM [facility] procedure are i n the results section. CBC W/PLT COUNT & AUTO Routine 03/12/2019 5:35 R esults for this DIFFERENTIAL AM [facility] procedure are i n the results section. BASIC METABOLIC PANEL Routine 03/12/2019 5:35 Re sults for this (7) AM [facility] procedure are i n the results section. APTT Routine 03/12/2019 5:35 Results for this AM [facility] procedure are i n the results section. PROTHROMBIN TIME/INR Routine 03/12/2019 5:35 Res ults for this AM [facility] procedure are i n the results section. PREPARE LEUKO-REDUCED STAT 03/11/2019 11:54 Re sults for this RBC PM [facility] procedure are i n the results section. PHOSPHORUS Routine 03/11/2019 9:10 Results for this PM [facility] procedure are i n the results section. MAGNESIUM Routine 03/11/2019 9:10 Results for this PM [facility] procedure are i n the results section. POTASSIUM Routine 03/11/2019 9:10 Results for this PM [facility] procedure are i n the results section. ECG 12-LEAD Routine 03/11/2019 8:57 Results for this PM [facility] procedure are i n the results section. ECG 12-LEAD Routine 03/11/2019 8:56 Results for this PM [facility] procedure are i n the results section. POCT-GLUCOSE METER Routine 03/11/2019 6:28 Resul ts for this PM [facility] procedure are i n the results section. TRANSFUSION SERVICE 03/11/2019 6:09 REPORT - SCAN PM [facility] TROPONIN I Routine 03/11/2019 1:02 Results for this PM [facility] procedure are i n the results section. POCT-GLUCOSE METER Routine 03/11/2019 12:23 Resul ts for this PM [facility] procedure are i n the results section. POCT-GLUCOSE METER Routine 03/11/2019 6:40 Resul ts for this AM [facility] procedure are i n the results section. CBC W/PLT COUNT & AUTO Routine 03/11/2019 4:10 R esults for this DIFFERENTIAL AM [facility] procedure are i n the results section. TROPONIN I Routine 03/11/2019 4:10 Results for this AM [facility] procedure are i n the results section. PHOSPHORUS Routine 03/11/2019 4:10 Results for this AM [facility] procedure are i n the results section. MAGNESIUM Routine 03/11/2019 4:10 Results for this AM [facility] procedure are i n the results section. CBC W/PLT COUNT & AUTO Routine 03/11/2019 4:10 R esults for this DIFFERENTIAL AM [facility] procedure are i n the results section. BASIC METABOLIC PANEL Routine 03/11/2019 4:10 Re sults for this (7) AM [facility] procedure are i n the results section. APTT Routine 03/11/2019 4:10 Results for this AM [facility] procedure are i n the results section. PROTHROMBIN TIME/INR Routine 03/11/2019 4:10 Res ults for this AM [facility] procedure are i n the results section. TRANSFUSE LEUKO-REDUCED STAT 03/11/2019 1:16 RED BLOOD CELLS AM [facility] TROPONIN I Routine 03/11/2019 12:29 Results for this AM [facility] procedure are i n the results section. POCT-GLUCOSE METER Routine 03/11/2019 12:05 Resul ts for this AM [facility] procedure are i n the results section. ECHOCARDIOGRAM REPORT - 03/10/2019 9:21 SCAN PM [facility] HEMOGLOBIN AND Routine 03/10/2019 9:09 Results f or this HEMATOCRIT PM [facility] procedure are i n the results section. TRANSFUSION SERVICE 03/10/2019 8:53 REPORT - SCAN PM [facility] TROPONIN I Routine 03/10/2019 8:01 Results for this PM [facility] procedure are i n the results section. POCT-GLUCOSE METER Routine 03/10/2019 6:15 Resul ts for this PM [facility] procedure are i n the results section. CBC (HEMOGRAM ONLY) Routine 03/10/2019 2:03 Resu lts for this PM [facility] procedure are i n the results section. TRANSFERRIN Routine 03/10/2019 2:03 Results for this PM [facility] procedure are i n the results section. FERRITIN Routine 03/10/2019 2:03 Results for this PM [facility] procedure are i n the results section. IRON, SERUM Routine 03/10/2019 2:03 Results for this PM [facility] procedure are i n the results section. IRON, TIBC, % SAT. Routine 03/10/2019 2:03 Resul ts for this (WITHOUT FERRITIN) PM [facility] procedure are in the results section. TROPONIN I Routine 03/10/2019 2:03 Results for this PM [facility] procedure are i n the results section. 2D ECHO W/ DOPPLER Routine 03/10/2019 1:59 Resul ts for this (CW/PW/COLOR) PM [facility] procedure are in the results section. NV CEREBRAL 4 VESSEL Routine 03/10/2019 12:30 Res ults for this ANGIOGRAM PM [facility] procedure are i n the results section. POCT-ACT Routine 03/10/2019 11:55 Results for this AM [facility] procedure are i n the results section. PREPARE LEUKO-REDUCED Routine 03/10/2019 8:24 Re sults for this RBC AM [facility] procedure are i n the results section. PROCEDURE DONE OUTSIDE 03/10/2019 8:00 Ruptured aneur ysm OR AM [facility] of artery (HCC) Special Needs APPROVED BY FINISHING ROOM SUPERVISOR ANESTHES IA FOR FIRST START POCT-GLUCOSE METER Routine 03/10/2019 6:26 AM [facility] Results for this procedure are i n the results section . (CELLAVISION MANUAL DIFF) Routine 03/10/2019 4:24 AM [facility] Results for this procedure are i n the results section . CBC W/PLT COUNT & AUTO Routine 03/10/2019 4:24 AM [facility] Results for this DIFFERENTIAL procedure are i n the results section . PHOSPHORUS Routine 03/10/2019 4:24 AM [facility] Resu lts for this procedure are i n the results section . MAGNESIUM Routine 03/10/2019 4:24 AM [facility] Resu lts for this procedure are i n the results section . CBC W/PLT COUNT & AUTO Routine 03/10/2019 4:24 AM [facility] Results for this DIFFERENTIAL procedure are i n the results section . BASIC METABOLIC PANEL (7) Routine 03/10/2019 4:24 AM [facility] Results for this procedure are i n the results section . LIPID PANEL Routine 03/10/2019 4:24 AM [facility] Resu lts for this procedure are i n the results section . APTT Routine 03/10/2019 4:24 AM [facility] Resu lts for this procedure are i n the results section . PROTHROMBIN TIME/INR Routine 03/10/2019 4:24 AM [facility] Results for this procedure are i n the results section . TROPONIN I Routine 03/10/2019 1:36 AM [facility]TER Resu lts for this procedure are i n the results section . ECG 12-LEAD STAT 03/09/2019 10:18 PM [facility] Resu lts for this procedure are i n the results section . POCT-GLUCOSE METER Routine 03/09/2019 10:04 PM [facility] Results for this procedure are i n the results section . URINALYSIS W/ REFLEX URINE Routine 03/09/2019 9:05 PM [facility] Results for this CULTURE procedure are i n the results section . DRUG SCREEN, URINE, Routine 03/09/2019 9:05 PM [facility]TER COMPREHENSIVE ABORH, MANUAL STAT 03/09/2019 9:04 PM [facility]TER Res ults for this procedure are i n the results section . SCREEN, URINE Routine 03/09/2019 8:46 PM [facility] Results for this procedure are i n the results section . (CELLAVISION MANUAL DIFF) STAT 03/09/2019 8:18 PM [facility] Results for this procedure are i n the results section . CBC W/PLT COUNT & AUTO STAT 03/09/2019 8:18 PM [facility] Results for this DIFFERENTIAL procedure are i n the results section . TYPE AND SCREEN, AUTOMATED STAT 03/09/2019 8:18 PM [facility] Results for this procedure are i n the results section . PT/APTT STAT 03/09/2019 8:18 PM [facility] Resu lts for this procedure are i n the results section . CBC W/PLT COUNT & AUTO STAT 03/09/2019 8:18 PM [facility] Results for this DIFFERENTIAL procedure are i n the results section . HEPATIC FUNCTION PANEL Routine 03/09/2019 8:18 PM [facility] Results for this procedure are i n the results section . PHOSPHORUS Routine 03/09/2019 8:18 PM [facility]TER Resu lts for this procedure are i n the results section . MAGNESIUM Routine 03/09/2019 8:18 PM [facility] Resu lts for this procedure are i n the results section . BASIC METABOLIC PANEL (7) Routine 03/09/2019 8:18 PM [facility] Results for this procedure are i n the results section . TROPONIN I Routine 03/09/2019 8:18 PM [facility] Resu lts for this procedure are i n the results section . CTA BRAIN STAT 03/09/2019 6:00 PM [facility] Resu lts for this procedure are i n the results section . CT/CTA CAROTID STAT 03/09/2019 6:00 PM [facility]TER Re sults for this procedure are i n the results section . after 07/02/2018 Results RHYTHM STRIP - SCAN (03/19/2019 8:40 AM [facility]TER) Narrative Performed At This result has an attachment that is no t available. CBC with platelet count + automated diff (03/17/2019 7:49 AM [facility]CE [facility]TER)Only the most recent of9 resultswithin the time period is included. WBC 8.9 3.5 - 10.5 K/L [facility] RBC 4.19 3.93 - 5.22 M/L [facility] Hemoglobin 9.4 (L) 11.2 - 15.7 GM/DL [facility] Hematocrit 31.0 (L) 34.1 - 44.9 % [facility] MCV 74.0 (L) 79.4 - 94.8 fL [facility] MCH 22.4 (L) 25.6 - 32.2 pg [facility] MCHC 30.3 (L) 32.2 - 35.5 GM/DL [facility] RDW 21.9 (H) 11.7 - 14.4 % [facility] Platelets 585 (H) 150 - 450 K/CU MM [facility] MPV 8.9 (L) 9.4 - 12.3 fL [facility] nRBC 0 0 - 0 /100 WBC [facility] % Neutros 62 % [facility] % Lymphs 22 % [facility] % Monos 13 % [facility] % Eos 2 % [facility] % Baso 1 % [facility] # Neutros 5.47 1.56 - 6.13 K/L [facility] # Lymphs 1.93 1.18 - 3.74 K/L [facility] # Monos 1.19 (H) 0.24 - 0.36 K/L [facility] # Eos 0.14 0.04 - 0.36 K/L [facility] # Baso 0.10 (H) 0.01 - 0.08 K/L [facility] Immature Granulocytes-Relative 1 0 - 1 % C [facility] Specimen Blood Performing Organization Address City/State/Zipcode Phone Number [address] [address] CENTER aPTT (03/17/2019 7:49 AM [facility]CE C[facility]TER)Only the most recent of8 resultswithin the time period is included. PTT 27.2 22.5 - 36.0 seconds [facility] Specimen Blood Performing Organization Address City/[facility]/Zipcode Phone Number [address] [address] CENTER Prothrombin time/INR (03/17/2019 7:49 AM [facility]CE C[facility]TER)Only the most recent of8 results within the time period is included. Protime 13.1 11.9 - 14.2 seconds [facility] INR 1.0 <=5.9 [facility] Specimen Blood Narrative Performed At Effective 07/15/2018: PT Reference Range [facility] Change New: 11.9-14.2Previous: 11.7-14.7 RECOMMENDED COUMADIN/WARFARIN INR THERAPY RANGES STANDARD DOSE: 2.0-3.0Includes: PROPHYLAXIS for venous thrombosis, systemic embolization; TREATMENT for venous thrombosis and/or pulmonary embolus. HIGH RISK: Target INR is 2.5-3.5 for patients wiht mechanical heart valves. Performing Organization Address City/[facility] Phone Number [place] [phone] [place] [address] CENTER Basic Metabolic Panel (03/17/2019 7:49 AM [facility]TUCE C[facility]TER)Only the most recent of9 results within the time period is included. Sodium 137 136 - 145 meq/L [facility] Potassium 4.1 3.5 - 5.1 meq/L [facility] Chloride 106 98 - 107 meq/L [facility] CO2 25 22 - 29 meq/L [facility] BUN 13 7 - 21 mg/dL [facility] Creatinine 0.68 0.57 - 1.25 mg/dL [facility] Glucose 100 70 - 105 mg/dL [facility] Calcium 9.5 8.4 - 10.2 mg/dL [facility] EGFR 94Comment: ESTIMATED GFR IS mL/min/1.73 sq m [facility] NOT ACCURATE CREATININE [facility] CLEARANCE IN PREDICTING GLOMERULAR FILTRATION RATE. ESTIMATED GFR IS NOT APPLICABLE FOR DIALYSIS PATIENTS. Specimen Blood Narrative Performed At Student Officer [place] - REZA Ferguson [facility] Performing Organization Address City/State/Zipcode Phone Number [address] [address] CENTER Magnesium (03/16/2019 12:08 PM [facility]TUCE C[facility]TER)Only the most recent of11 resultswithin the time period is included. Magnesium 2.1 1.6 - 2.6 mg/dL [facility] Specimen Blood Narrative Performed At Student Officer ID - HIMANSHU Ferguson [facility] Performing Organization Address City/State/Zipcode Phone Number [address] [address] CENTER Phosphorus (03/16/2019 4:28 AM [facility]TUCE C[facility]TER)Only the most recent of9 resultswithin the time period is included. Phosphorus 4.2 2.3 - 4.7 mg/dL [facility] Specimen Blood Narrative Performed At Student Officer ID - REZA Ferguson [facility] Performing Organization Address City/State/Zipcode Phone Number [address] [address] CENTER Transcranial Doppler Complete (TCD) (03/15/2019 9:50 PM LETTUCE C[facility]TER) Specimen Narrative Performed At Ronen Lyons MD 03/17/20198:43 PM GE RIS [facility]- Transcranial Doppler R eport Patient Name: Gabriella Botello Date: 03/13/2019 03/16/2019 Referring physician: Indication: aSAH Maximal estimated mean blood flow veloci ties (cm / sec): R EC ICA 51 90 L EC ICA 51 70 R Ophthalmic L Ophthalmic R MCA 106 86 R MATEUSZ 97 111 R ICA 70 52 R LYE TREATER 40 40 L MCA 68 61 L MATEUSZ 89 82 L ICA 53 44 L LYE TREATER 39 37 R vertebral 47 52 L vertebral 58 43 Basilar 40 40 [place] (R MCA:R ECICA) 2.08 2.11 [place] (L MCA:L ECICA) 1.35 1.37 Post bleed day #: 5 7 Velocity Range Victor Elevated velocity = 90 - 119 cm/sec Mild vasospasm = 120 - 159 cm/sec Moderate vasospasm = 160 - 199 cm/sec Severe vasospasm = ? 200 cm/sec Interpretation: There are elevated velocities in the rig ht MATEUSZ not in the vasospasm range. No evidence of vasospas m based on the [place] ratios bilaterally. Clinical Correlation is recommended. Andreas Hanna MD Neurocritical Care Fellow [phone] I performed the procedure and reviewed r ecords, and agree with documentation above.. Performing Organization Address City/[facility] Phone Number RIS Sodium (03/13/2019 4:06 PM LETTUCE CUTTER) Sodium 138 136 - 145 meq/L [facility] Specimen Blood Narrative Performed At Student Officer CASPER Ferguson [facility] Performing Organization Address [facility] Phone Number [address] [address] CENTER Potassium (03/13/2019 4:06 PM LETTUCE CUTTER)Only the most recent of2 resultswithin the time period is included. Potassium 4.4 3.5 - 5.1 meq/L [facility] Specimen Blood Narrative Performed At Student Officer CASPER Ferguson [facility] Performing Organization Address [facility] Phone Number [address] [address] CENTER POC-Glucose meter (03/13/2019 12:12 AM LETTUCE CUTTER)Only the most recent of8 results within the time period is included. POC-Glucose Meter 88Comment: : TESTED AT 70 - 110 mg/dL [address], [address]: Student Officer/Herbologist ID = [id number] for JAYE BRIAN Specimen Blood Performing Organization Address [facility] Phone Number [address] [address] [place] TRANSFUSION SERVICE REPORT - SCAN (03/12/2019 9:06 PM LETTUCE CUTTER)Only the most recent of3 resultswithin the time period is included. Narrative Performed At This result has an attachment that is no t available. Prepare Leuko-Red RBC (03/11/2019 11:54 PM LETTUCE CUTTER)Only the most recent of2 results within the time period is included. CROSSMATCH COMPATIBLE SAFETRACE TX Unit ABO O Pos SAFETRACE TX UNIT NUMBER [id number] SAFETRACE TX Status TX_TIMEINCHART SAFETRACE TX Blood Bank Product RED BLOOD CELLS SAFETRACE TX PRODUCT CODE [id number] SAFETRACE TX Specimen Other Performing Organization Address [facility] Phone Number SAFETRACE TX ECG 12 lead (03/11/2019 8:57 PM LETTUCE CUTTER)Only the most recent of3 resultswithin the time period is included. Specimen Narrative Performed At Ventricular Rate 72 BPM GE MUSE Atrial Rate 72 BPM P-R Interval 144 ms QRS Duration 92 ms Q-T Interval 402 ms QTC Calculation(Bazett) 440 ms P [place] -10 degrees R [place] -16 degrees T [place] 113 degrees Normal sinus rhythm T wave abnormality, consider lateral isc hemia Abnormal ECG When compared with ECG of 11-MAR-2019 20 :56, No significant change was found Confirmed by MD Mcrae Roberto ([id number]) on 03/13 4:41:54 PM Procedure Note Interface, External Ris In - 03/13/2019 4:42 PM LETTUCE CUTTER Ventricular Rate 72 BPM Atrial Rate 72 BPM P-R Interval 144 ms QRS Duration 92 ms Q-T Interval 402 ms QTC Calculation(Bazett) 440 ms P [place] -10 degrees R [place] -16 degrees T [place] 113 degrees Normal sinus rhythm T wave abnormality, consider lateral isc hemia Abnormal ECG When compared with ECG of 11-MAR-2019 20 :56, No significant change was found Confirmed by MD Mcrae Roberto ([id number]) on 03/13/2019 4:41:54 PM Performing Organization Address City/[facility] Phone Number [place] Troponin I (03/11/2019 1:02 PM LETTUCE CUTTER)Only the most recent of7 resultswithin the time period is included. Troponin I 0.16 (H) 0.00 - 0.03 ng/mL [facility] Specimen Blood Narrative Performed At Troponin I (TnI) levels must be interpreted [facility] in the context of the presenting symptoms and the clinical findings. Elevated TnI levels indicate myocardial damage, but are not specific for ischemic heart disease. Elevated TnI levels are seen in patients with other cardiac conditions (including myocarditis and congestive heart failure), and slight TnI elevations occur in patients with other conditions, including sepsis, renal failure, acidosis, acute neurological disease, and persistent tachyarrhythmia. Student Officer ID - BS Performing Organization Address City/[facility] Phone Number [address] [address] CENTER Transfuse Leuko-Red RBC (03/11/2019 1:16 AM LETTUCE CUTTER)Only the most recent of2 resultswithin the time period is included.ECHOCARDIOGRAM REPORT - SCAN (03/10/2019 9:21 PM LETTUCE CUTTER) Narrative Performed At This result has an attachment that is no t available. Hemoglobin and hematocrit (03/10/2019 9:09 PM LETTUCE CUTTER) Hemoglobin 6.8 (L) 11.2 - 15.7 GM/DL [facility] Hematocrit 22.5 (L) 34.1 - 44.9 % [facility] Specimen Blood Narrative Performed At Student Officer ID - [id number] [facility] Performing Organization Address [facility] Phone Number [address] [address] CENTER Iron, TIBC, % sat. (without ferritin) (03/10/2019 2:03 PM LETTUCE CUTTER) Iron 18.0 (L) 40.0 - 160.0 ug/dL [facility] TIBC 419 250 - 450 ug/dL [facility] Iron % Saturation 4 (L) 20 - 55 % [facility] Specimen Blood Narrative Performed At Student Officer ID - BS [facility] Performing Organization Address [facility]/Zipcode Phone Number [address] [address] [place] CBC (Hemogram only) (03/10/2019 2:03 PM LETTUCE CUTTER) WBC 17.4 (H) 3.5 - 10.5 K/L [facility] RBC 3.35 (L) 3.93 - 5.22 M/L [facility] Hemoglobin 7.1 (L) 11.2 - 15.7 GM/DL [facility] Hematocrit 23.5 (L) 34.1 - 44.9 % [facility] MCV 70.1 (L) 79.4 - 94.8 fL [facility] MCH 21.2 (L) 25.6 - 32.2 pg [facility] MCHC 30.2 (L) 32.2 - 35.5 GM/DL [facility] RDW 17.7 (H) 11.7 - 14.4 % [facility] Platelets 598 (H) 150 - 450 K/CU MM [facility] MPV 9.1 (L) 9.4 - 12.3 fL [facility] nRBC 0 0 - 0 /100 WBC [facility] Specimen Blood Performing Organization Address City/[facility]/Zipcode Phone Number [address] [address] [place] Transferrin (03/10/2019 2:03 PM LETTUCE CUTTER) Transferrin 335 174 - 382 mg/dL [facility] Specimen Blood Narrative Performed At Student Officer ID - BS [facility] ICAL CENTER Performing Organization Address City/[facility]/Zipcode Phone Number [address] [address] [place] Iron, serum (03/10/2019 2:03 PM LETTUCE CUTTER) Iron 18.0 (L) 40.0 - 160.0 ug/dL [facility] Specimen Blood Performing Organization Address City/[facility]/Zipcode Phone Number [facility] [address] [place] [address] CENTER Ferritin (03/10/2019 2:03 PM LETTUCE CUTTER) Ferritin 13 5 - 275 ng/mL [facility] Specimen Blood Narrative Performed At Student Officer ID - BS [facility] Performing Organization Address City/State/Zipcode Phone Number [facility] [address] [place] [address] CENTER Transthoracic 2D echo w/ doppler (cw/pw/color) (03/10/2019 1:59 PM LETTUCE CUTTER) Ejection Fraction [facility] ECHO HEAR TLAB [facility] Specimen Narrative Performed At Transthoracic Echocardiography Report (T TE) [facility] Demographics Patient Name GABRIELLA BOTELLO Date of Study 03/10/2019 [id number] GenderFem zeinab Visit Number [id number] RaceKatherinn own [id number] m Number [id number] Number Date of Birth1975 Referring Physician Siva Mckeon Age43 year(s) Magazine Designer Alan Edwards,Kamilah Wiseman, [facility] Physician Procedure Type of Study TTE procedure:2DECHO W DOPPLER(CW/PW/COLOR) (Routine) Indications:Suspected hypertensive heart disease. Clinical History HTN ACUTE ENCEPHALOPATY Subarachnoid Hematoma Contrast Medium: New Item. Height: 64 inches Weight: 68.49 kg (151 lbs) BSA: 1.74 m^2 BMI: 25.92 kg/m^2 HR: 82 bpm BP: 130/98 mmHg Summary 1. Normal LV size and function. All of the segments contract normally. LV EF is increased (>70%) . 2. Normal RV size and function. 3. Grade 1 diastolic dysfunction (impaired relaxation and low-normal LA pressure). 4. Estimated peak systolic PA pressure is 28 mmHg + RA pressure. (RA pressure indeterminate on this exam) Previous Study No prior studies available for comparis on. Signature Findings Technical Quality: Technically adequate exam. Left Ventricle The left ventricle is chamber size (by vol index) is mildly enlarged (female - LVED 62-70ml/m 2). Mo derate concentric LV hypertrophy. All of the LV se gments are hyperkinetic . Global LV syst olic fu nction hyperdynamic . LVEF by Barillas's method of di sk assessment is increased (>70%) . Grad e 1 di astolic dysfunction (impaired relaxation and lo w-normal LA pressure). Left AtriumLA size is severely enlarged (>48 ml/m2) . Right VentricleThe right ventricular chamber size and systolic fu nction are within normal limits. Right Atrium RA size is normal. Aortic Valve Normal AoV structure and function. Mitral Valve Mild MV leaflet thickening. Tr alcides mitral regurgitation. Tricuspid ValveTV structure is normal. A trace of tricuspid regurgitation. Es timated peak systolic PA pressure is 28 mmHg + RA pr essure. (RA pressure indeterminate on th is exam) Pulmonic Valve Normal PV structure and function by limited views an d Doppler. AortaAortic root size (SInus of Valsalva diameter) i s no rmal . PericardiumNo pericardial effusion is visualized. IVC/SVC/PA/PV/PleuralThe estimated RA pressure by IVC dynamics in determinate . Th e inferior vena cava is not well visuali zed. Chambers/Structures Left Atrium LA Volume: 105.92 mlLA Area: 29.09 cm^2 LA Vol. Index: 61 ml/m^2 Left Ventricle LVIDd: 4.56 cm LVIDs: 2.19 cm LV Septum Diastolic: 1.56 cm LV PW Diastolic: 1.47 cmLV FS: 52 % LVEDV Barillas's:110.75 ml LVESV Barillas's:31.66 mlLVEDVI: 64 ml/m^2 LVEF Barillas's: 71.4 %LVESV I: 18 ml/m^2 LVOT Diameter: 2.22 cm Right Atrium RA Vol. (Sngl Plane): 5 2.92 ml Aorta Ao Root S of Trista.: 3.47 cm Doppler/Quantitative Measurements Mitral Valve MV Peak E-Wave: 0.87 m/sMV Peak A-Wave: 1.1 m/s E/A Ratio: 0. 79 Peak Gradient: 3.01 mmHg Deceleration Time: 272.9 msec MV Rui. Peak: Tissue Doppler E' Lateral Velocity: 0.07 m/s E/E': 11.65 Aortic Valve Peak Velocity: 2.02 m/sMean Velocity: 1.36 m/s Peak Gradient: 16.25 mmHgMean Gradient: 8.44 mmHg AV Area (continuity): 3.72 cm^2 AV VTI: 38.92 cm AV DVI: 0.96 LVOT Peak Velocity: 1.69 m/sPeak Gradient: 11.41 mmHg Mean Velocity: 1.16 m/sMean Gradient: 6.21 mmHg LVOT Diameter: 2.22 cm LVOT VTI: 37.47 cm LVOT Area: 3.87 cm^2 LVOT SV:144.96 ml LVOT CO: 11.89 l/min LVOT CI: 6.83 l/min/m^2 Tricuspid Valve TR Velocity: 2.66 m/s TR Gradient: 28.32 mmHg Procedure Note Interface, External Ris In - 03/10/2019 4:39 PM LETTUCE CUTTER Transthoracic Echocardiography Report (TTE) Demographics Patient Name GABRIELLA BOTELLO Date of Study 03/10/2019 Gender Female Visit Number [id number] Race Unknown Room [facility] [id number] Number Date of 1975 Referri Physician Siva Mckeon Age 43 year(s) Sonsteven Coombs Representative Lorene Edwards, Interpr eting Margarita Wiseman, RDCS Physici an Procedure Type of Study TTE procedure:2DECHO W DOPPLE R(CW/PW/COLOR) (Routine) Indications:Suspected hypertensive heart disease. Clinical History HTN ACUTE ENCEPHALOPATY Subarachnoid Hematoma Contrast Medium: New Item. Height: 64 inches Weight: 68.49 kg (151 lbs) BSA: 1.74 m^2 BMI: 25.92 kg/m^2 HR: 82 bpm BP: 130/98 mmHg Summary 1. Normal LV size and function. All of the segments contract normally. LV EF is increased (>70%) . 2. Normal RV size and function. 3. Grade 1 diastolic dysfunction (impai red relaxation and low-normal LA pressure). 4. Estimated peak systolic PA pressure is 28 mmHg + RA pressure. (RA pressure indeterminate on this exam) Previous Study No prior studies available for comparis on. Signature Findings Technical Quality: Technically adequate exam. Left Ventricle The left ventric le is chamber size (by vol index) is mildly enlarg ed (female - LVED 62-70ml/m2). Moderate concent neftali LV hypertrophy. All of the LV segments are hyp erkinetic . Global LV systolic function hyperdy namic . LVEF by Barillas's method of disk assessment is increased (>70%) . Grade 1 diastolic dysfun ction (impaired relaxation and low-normal LA pr essure). Left Atrium LA size is sever nadir enlarged (>48 ml/m2) . Right Ventricle The right ventri cular chamber size and systolic function are wit hin normal limits. Right Atrium RA size is leilani l. Aortic Valve Normal AoV struc ture and function. Mitral Valve Mild MV leaflet thickening. Trace mitral reg urgitation. Tricuspid Valve TV structure is normal. A trace of tricu spid regurgitation. Estimated peak s ystolic PA pressure is 28 mmHg + RA pressure. (RA pr essure indeterminate on this exam) Pulmonic Valve Normal PV struct ure and function by limited views and Doppler. Aorta Aortic root size (SInus of Valsalva diameter) is normal . Pericardium No pericardial e ffusion is visualized. IVC/SVC/PA/PV/Pleural The estimated RA pressure by IVC dynamics indeterminate . The inferior ezequiel a cava is not well visualized. Chambers/Structures Left Atrium LA Volume: 105.92 ml LA Area: 29.09 cm^2 LA Vol. Index: 61 ml/m^2 Left Ventricle LVIDd: 4.56 cm LVIDs: 2.19 cm LV Septum Diastolic: 1.56 cm LV PW Diastolic: 1.47 cm LV FS: 52 % LVEDV Barillas's:110.75 ml LVESV Barillas's:31.66 ml LVEDVI: 64 ml/m^2 LVEF Barillas's: 71.4 % LVESVI: 18 ml/m^2 LVOT Diameter: 2.22 cm Right Atrium RA Vol. (Sngl Plane): 52.92 ml Aorta Ao Root S of Trista.: 3.47 cm Doppler/Quantitative Measurements Mitral Valve MV Peak E-Wave: 0.87 m/s M V Peak A-Wave: 1.1 m/s E /A Ratio: 0.79 P eak Gradient: 3.01 mmHg D eceleration Time: 272.9 msec MV Rui. Peak: Tissue Doppler E' Lateral Velocity: 0.07 m/s E /E': 11.65 Aortic Valve Peak Velocity: 2.02 m/s Mean Velocity: 1.36 m/s Peak Gradient: 16.25 mmHg Mean Gradient: 8.44 mmHg AV Area (continuity): 3.72 cm^2 AV VTI: 38.92 cm AV DVI: 0.96 LVOT Peak Velocity: 1.69 m/s Peak Gradient: 11.41 mmHg Mean Velocity: 1.16 m/s Mean Gradient: 6.21 mmHg LVOT Diameter: 2.22 cm LVOT VTI: 37.47 cm LVOT Area: 3.87 cm^2 LVOT SV:144.96 ml LVOT CO: 11.89 l/min LVOT CI: 6.83 l/min/m^2 Tricuspid Valve TR Velocity: 2.66 m/s TR Gradient: 28.32 mmHg Performing Organization Address City/State/Zipcode Phone Number [facility] [place] cerebral 4 vessel angiogram (03/10/2019 12:30 PM LETTUCE CUTTER) Specimen Narrative Performed At FINAL REPORT [email or web address] DATE OF SERVICE: 03/10/2019 12:55 PM SURGEON: Thee Brewer M.D. LITHOGRAPHIC PROOFER: Rafal Sanders M.D. PREOPERATIVE DIAGNOSIS:Subarachnoid hemorrhage POSTOPERATIVE DIAGNOSIS: Ruptured right middle cerebral artery aneurysm OPERATION: 1) Cerebral Angiogram 2) Coil Embolization of the right middle cerebral artery aneurysm ANESTHESIA:General COMPLICATIONS: none EBL: less than 25cc INDICATIONS: 43-year-old woman presented with one day of severe headaches, found to have aneurysmal suba rachnoid hemorrhage on CT head. CT angiogram showed a right proxim al MCA branch aneurysm, suspicious for the source of subarachnoi d hemorrhage. The patient was taken for angiogram in order to better c haracterize the aneurysm and for possible treatment. PROCEDURE:Following explanation of t he benefits, risks and alternatives for the procedure, informed consent was obtained from the patient. The risks including but not limited to stroke, intracranial hemorrhage, vascular injury to the cervical or femoral vessels and groin hematoma were discusse d with the patient. A time-out was performed. Both groins were prepped in the usual sterile fashion using Chloraprep, and sterilely draped. A single wall puncture of the right femoral artery was performed and a 5-Fr short sheath was inserted into the right commo n femoral artery and maintained on heparinized flush. Using coaxial technique a 5 Greenlandic angle d glide catheter was advanced into the descending aorta then into the aortic arch, and with the aid of the roadmapping, digital fluoroscopy, and careful guidewire manipulation the: Right vertebral artery , right common carotid artery, right external carotid artery, r ight internal carotid artery, left common carotid artery, left subclav sondra artery, and left vertebral artery were catheterized.U hieu each successive selective catheterization, digital subtraction ang iography using the appropriate rate and volume of contrast in multiple projections was performed. 3-D rotational and Doni CT images were a lso performed. These were processed on a separate workstation and reviewed independently by Dr. Brewer. After completion of the diagnostic porti on of the angiogram, we proceeded with endovascular treatment. T he 5 Greenlandic short sheath was replaced with an Infinity catheter, and we proceeded with endovascular intervention. After complet ion of intervention, the guide sheath was removed and the groin w as closed with a 6 Greenlandic Angio-Seal device. The patient was then accompanied to the neurological intensive care unit for rec overy. FINDINGS: RIGHT COMMON FEMORAL ARTERY (DSA-PA, LAT ERAL-GROIN) The sheath enters the common femoral art la above the bifurcation. The common femoral artery is normal in a ppearance without tortuosity. RIGHT COMMON CAROTID ARTERY (DSA - PA, L ATERAL - CERVICAL) The origins of the right internal and ex ternal carotid arteries are widely patent without evidence of ulcera tion or stenosis. RIGHT EXTERNAL CAROTID ARTERY (DSA-PA, L ATERAL-HEAD) The visualized branches of the external carotid artery are normal in course and appearance. This includes the occipital artery, superficial temporal artery, ascending p haryngeal artery, and parts of the internal maxillary artery. Capill adebayo phase is normal. There is no evidence of arteriovenous fistula. RIGHT INTERNAL CAROTID ARTERY (DSA - PA, LATERAL, OBLIQUE, 3-D ROTATIONAL, DONI CT- HEAD) There is a 6.4 x 3.4 mm saccular aneurys m arising from a proximal branch of the M1 middle cerebral artery. The aneurysm has a narrow neck measuring 2.4 mm in diameter. There are several daughter sacs arising from the dome of the aneurysm. T he aneurysm projects laterally. Anterior cerebral artery is n ormal in course and appearance. There is flash filling acros s the anterior communicating artery. The remainder of the middle cere bral artery is normal in course and appearance. There is a large size posterior communicating artery. No vascular malformation or orlin riovenous shunting is noted. No stenosis or vasospasm is observed. No significant abnormalities are seen in the capillary and venous pha ses. The venous phase demonstrates patent transverse and sigmo id sinuses. RIGHT VERTEBRAL ARTERY (DSA-PA, LATERAL- HEAD) The right vertebral artery is normal in course and appearance. The right PICA fills fully and is normal in course and appearance. There is no retrograde filling of the left tim tebral artery. The basilar artery is normal in course and appearanc e. 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 The le ft posterior cerebral artery fills fully and is normal in course and appearance. The right posterior cerebral artery is largely was hed out with predominant flow through the posterior communicating orlin ry. The capillary phase is normal. Bilateral transverse and sigmoid sinuses are normal in appearance. There is no evidence of aneu rysm, arteriovenous malformation, or fistula. LEFT COMMON CAROTID ARTERY (DSA - PA, LA TERAL - CERVICAL) The origins of the left internal and ext ernal carotid arteries are widely patent without evidence of ulcera tion or stenosis. LEFT COMMON CAROTID ARTERY (DSA - PA, LA TERAL, OBLIQUE- HEAD) The visualized cervical, petrous, cavern ous and supraclinoid portions of the internal carotid artery are leilani l in course and appearance. The anterior cerebral and middle cerebra l arteries fill fully and are normal in course and appearance. There i s a large size posterior communicating artery. There is flash crown ceramist ssfilling across the anterior communicating artery. No aneurysms, vasc ular malformations, stenosis, or vasospasm is observed. No significant abnormalities are seen in the capillary and venous phases. The ezequiel ous phase demonstrates patent transverse and sigmoid sinuses.Visua lized portions of the external carotid artery are normal in course and appearance. There is no evidence of arteriovenous fistula. LEFT SUBCLAVIAN ARTERY (ROADMAP - PA - C ERVICAL) The origin of the left vertebral artery is patent without significant stenosis. LEFT VERTEBRAL ARTERY (DSA - PA, LATERAL - HEAD) The left vertebral artery is patent with out significant stenotic lesion. The basilar artery shows no sign ificant abnormality. There is symmetric caudal regression of the basil ar artery. No aneurysms, vascular malformations, or stenotic lesi ons are noted in the vertebrobasilar system. The venous phase shows patent bilateral transverse and sigmoid sinuses. ENDOVASCULAR TREATMENT: Aneurysm appeared amenable to endovascul ar treatment given the location and neuro neck. We exchanged th e 5 Greenlandic short sheath for a 6 Greenlandic Infinity guide sheath. Using a guidewire and 2 Oliveira catheter, we catheterized the right comm on carotid artery and advance the Infinity guide catheter into the rig ht common carotid artery. Then using the Cat5 distal access cathet er, we advanced the system into the internal carotid artery, projec ting the guide sheath the junction of the right cervical and edwige us internal carotid artery. At this time we advanced a microcatheter over a standard Synchro microwire, carefully positioning the tip of the microcatheter within the aneurysm. Next a 5 mm x 20 cm target 360 soft coil was carefully and tediously framed within a complex shape of the ane urysm, with coil loops extending into each of the different lob es the aneurysm but respecting the neck of the aneurysm. The guide sheath angiogram was performed which demonstrated full patenc y of the parent artery and good position of the coils. This coil wa s detached. Next a 2 mm x 3 cm target 360 Kacie coil was carefully deployed within the initial framing coil, and another gu pavel sheath angiogram was performed demonstrating occlusion of the aneurysm and no untoward findings. The coil was detached. At this time a final guide sheath angiog maame was performed, which showed a small amount of clot extending from the coil mass to the aneurysm neck and causing delayed fillin g of the proximal branch past the origin of the aneurysm. The patient was loaded with Aggrastat 0.4 mcg/kg, which was delivered slowly and t ediously through the microcatheter now positioned in the prox imal M1 middle cerebral artery. Multiple additional guide sheath angiograms were performed over the next 30 minutes to ensure that propagation of the clot had ceased. By the final guide sheath angiog maame, the size of the clot had noted to have decreased, with improved f low through the parent branch of the aneurysm. The aneurysm remained o ccluded. The microcatheter was removed, and anoth er DSA was obtained from the right internal carotid artery showing no untoward , and aneurysm occlusion. Whole head PA and lateral ang iogram demonstrated no untoward findings and wide patency of al l of the afferent and efferent vessels. SUPERVISION AND INTERPRETATION: Angiographic study demonstrates: 1. 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 2. Successful coil embolization of the m iddle cerebral artery aneurysm 3. No immediate technical or clinical co mplications. Signed: Sally Brewer MD Report Verified Date/Time:03/12/2019 14:28:32 Reading Location: [facility] Y[address] [facility] o Reading Room Procedure Note Interface, External Ris In - 03/12/2019 2:30 PM LETTUCE CUTTER FINAL REPORT DATE OF SERVICE: 03/10/2019 12:55 PM SURGEON: Thee Berwer M.D. LITHOGRAPHIC PROOFER: Rafal Sanders M.D. PREOPERATIVE DIAGNOSIS: Subarachnoid he morrhage POSTOPERATIVE DIAGNOSIS: Ruptured right middle cerebral artery aneurysm OPERATION: 1) Cerebral Angiogram 2) Coil Embolization of the right middle cerebral artery aneurysm ANESTHESIA: General COMPLICATIONS: none EBL: less than 25cc INDICATIONS: 43-year-old woman presented with one day of severe headaches, found to have aneurysmal suba rachnoid hemorrhage on CT head. CT angiogram showed a right proxim al MCA branch aneurysm, suspicious for the source of subarachnoi d hemorrhage. The patient was taken for angiogram in order to better c haracterize the aneurysm and for possible treatment. PROCEDURE: Following explanation of the benefits, risks and alternatives for the procedure, informed consent was obtained from the patient. The risks including but not limited to stroke, intracranial hemorrhage, vascular injury to the cervical or femoral vessels and groin hematoma were discusse d with the patient. A time-out was performed. Both groins were prepped in the usual sterile fashion using Chloraprep, and sterilely draped. A single wall puncture of the right femoral artery was performed and a 5-Fr short sheath was inserted into the right commo n femoral artery and maintained on heparinized flush. Using coaxial technique a 5 Greenlandic angle d glide catheter was advanced into the descending aorta then into the aortic arch, and with the aid of the roadmapping, digital fluoroscopy, and careful guidewire manipulation the: Right vertebral artery , right common carotid artery, right external carotid artery, r ight internal carotid artery, left common carotid artery, left subclav sondra artery, and left vertebral artery were catheterized. Upo n each successive selective catheterization, digital subtraction ang iography using the appropriate rate and volume of contrast in multiple projections was performed. 3-D rotational and Doni CT images were a lso performed. These were processed on a separate workstation and reviewed independently by Dr. Brewer. After completion of the diagnostic porti on of the angiogram, we proceeded with endovascular treatment. T he 5 Greenlandic short sheath was replaced with an Infinity catheter, and we proceeded with endovascular intervention. After complet ion of intervention, the guide sheath was removed and the groin w as closed with a 6 Greenlandic Angio-Seal device. The patient was then accompanied to the neurological intensive care unit for rec overy. FINDINGS: RIGHT COMMON FEMORAL ARTERY (DSA-PA, LAT ERAL-GROIN) The sheath enters the common femoral art la above the bifurcation. The common femoral artery is normal in a ppearance without tortuosity. RIGHT COMMON CAROTID ARTERY (DSA - PA, L ATERAL - CERVICAL) The origins of the right internal and ex ternal carotid arteries are widely patent without evidence of ulcera tion or stenosis. RIGHT EXTERNAL CAROTID ARTERY (DSA-PA, L ATERAL-HEAD) The visualized branches of the external carotid artery are normal in course and appearance. This includes the occipital artery, superficial temporal artery, ascending p haryngeal artery, and parts of the internal maxillary artery. Capill adebayo phase is normal. There is no evidence of arteriovenous fistula. RIGHT INTERNAL CAROTID ARTERY (DSA - PA, LATERAL, OBLIQUE, 3-D ROTATIONAL, DONI CT- HEAD) There is a 6.4 x 3.4 mm saccular aneurys m arising from a proximal branch of the M1 middle cerebral artery. The aneurysm has a narrow neck measuring 2.4 mm in diameter. There are several daughter sacs arising from the dome of the aneurysm. T he aneurysm projects laterally. Anterior cerebral artery is n ormal in course and appearance. There is flash filling acros s the anterior communicating artery. The remainder of the middle cere bral artery is normal in course and appearance. There is a large size posterior communicating artery. No vascular malformation or orlin riovenous shunting is noted. No stenosis or vasospasm is observed. No significant abnormalities are seen in the capillary and venous pha ses. The venous phase demonstrates patent transverse and sigmo id sinuses. RIGHT VERTEBRAL ARTERY (DSA-PA, LATERAL- HEAD) The right vertebral artery is normal in course and appearance. The right PICA fills fully and is normal in course and appearance. There is no retrograde filling of the left tim tebral artery. The basilar artery is normal in course and appearanc e. 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 The le ft posterior cerebral artery fills fully and is normal in course and appearance. The right posterior cerebral artery is largely was hed out with predominant flow through the posterior communicating orlin ry. The capillary phase is normal. Bilateral transverse and sigmoid sinuses are normal in appearance. There is no evidence of aneu rysm, arteriovenous malformation, or fistula. LEFT COMMON CAROTID ARTERY (DSA - PA, LA TERAL - CERVICAL) The origins of the left internal and ext ernal carotid arteries are widely patent without evidence of ulcera tion or stenosis. LEFT COMMON CAROTID ARTERY (DSA - PA, LA TERAL, OBLIQUE- HEAD) The visualized cervical, petrous, cavern ous and supraclinoid portions of the internal carotid artery are leilani l in course and appearance. The anterior cerebral and middle cerebra l arteries fill fully and are normal in course and appearance. There i s a large size posterior communicating artery. There is flash crown ceramist ssfilling across the anterior communicating artery. No aneurysms, vasc ular malformations, stenosis, or vasospasm is observed. No significant abnormalities are seen in the capillary and venous phases. The ezequiel ous phase demonstrates patent transverse and sigmoid sinuses. Visuali zed portions of the external carotid artery are normal in course and appearance. There is no evidence of arteriovenous fistula. LEFT SUBCLAVIAN ARTERY (ROADMAP - PA - C ERVICAL) The origin of the left vertebral artery is patent without significant stenosis. LEFT VERTEBRAL ARTERY (DSA - PA, LATERAL - HEAD) The left vertebral artery is patent with out significant stenotic lesion. The basilar artery shows no sign ificant abnormality. There is symmetric caudal regression of the basil ar artery. No aneurysms, vascular malformations, or stenotic lesi ons are noted in the vertebrobasilar system. The venous phase shows patent bilateral transverse and sigmoid sinuses. ENDOVASCULAR TREATMENT: Aneurysm appeared amenable to endovascul ar treatment given the location and neuro neck. We exchanged th e 5 Greenlandic short sheath for a 6 Greenlandic Infinity guide sheath. Using a guidewire and 2 Oliveira catheter, we catheterized the right comm on carotid artery and advance the Infinity guide catheter into the rig ht common carotid artery. Then using the Cat5 distal access cathet er, we advanced the system into the internal carotid artery, projec ting the guide sheath the junction of the right cervical and edwige us internal carotid artery. At this time we advanced a microcatheter over a standard Synchro microwire, carefully positioning the tip of the microcatheter within the aneurysm. Next a 5 mm x 20 cm target 360 soft coil was carefully and tediously framed within a complex shape of the ane urysm, with coil loops extending into each of the different lob es the aneurysm but respecting the neck of the aneurysm. The guide sheath angiogram was performed which demonstrated full patenc y of the parent artery and good position of the coils. This coil wa s detached. Next a 2 mm x 3 cm target 360 Kacie coil was carefully deployed within the initial framing coil, and another gu pavel sheath angiogram was performed demonstrating occlusion of the aneurysm and no untoward findings. The coil was detached. At this time a final guide sheath angiog maame was performed, which showed a small amount of clot extending from the coil mass to the aneurysm neck and causing delayed fillin g of the proximal branch past the origin of the aneurysm. The patient was loaded with Aggrastat 0.4 mcg/kg, which was delivered slowly and t ediously through the microcatheter now positioned in the prox imal M1 middle cerebral artery. Multiple additional guide sheath angiograms were performed over the next 30 minutes to ensure that propagation of the clot had ceased. By the final guide sheath angiog maame, the size of the clot had noted to have decreased, with improved f low through the parent branch of the aneurysm. The aneurysm remained o ccluded. The microcatheter was removed, and anoth er DSA was obtained from the right internal carotid artery showing no untoward , and aneurysm occlusion. Whole head PA and lateral ang iogram demonstrated no untoward findings and wide patency of al l of the afferent and efferent vessels. SUPERVISION AND INTERPRETATION: Angiographic study demonstrates: 1. 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 2. Successful coil embolization of the m iddle cerebral artery aneurysm 3. No immediate technical or clinical co mplications. Signed: Sally Brewer MD Report Verified Date/Time: 03/12/2019 1 4:28:32 Reading Location: [facility] Y026 Neuro Sandie o Reading Room Performing Organization Address City/State/Zipcode Phone Number [employer] RIS POC ACTIVATED CLOTTING TIME (03/10/2019 11:55 AM LETTUCE CUTTER) Activated Clotting Time 158Comment: Reference sec [facility] Range: 74-137 seconds, MEDICAL CENTER Baseline/TESTED AT [address] [address] Specimen Blood Performing Organization Address City/[facility]/Zipcode Phone Number [facility] MEDICAL [address] [place] [phone] CENTER Manual Differential (03/10/2019 4:24 AM LETTUCE CUTTER)Only the most recent of2 results within the time period is included. % Neutros 88 % [facility] % Lymphs 9 % [facility] % Monos 2 % [facility] % Baso 1 % [facility] # Neutros 18.04 (H) 1.56 - 6.13 K/ul [facility] # Lymphs 1.85 1.18 - 3.74 K/ul [facility] # Monos 0.41 (H) 0.24 - 0.36 K/uL [facility] # Baso 0.21 (H) 0.01 - 0.08 K/uL [facility] Total Counted [address] [facility] WBC Morph[facility] Normal [facility] Platelet Morph[facility] Normal [facility] Polychromasia 1+ few [facility] Hypochrom[facility] 1+ few [facility] Anisocytosis 1+ few [facility] Microcytes 1+ few [facility] Artifact Present [facility] Platelet Conc Increased [facility] Specimen Blood Narrative Performed At Student Officer ID - Seema Overholt [facility] User comments: Slide comments: Performing Organization Address City/State/Zipcode Phone Number [facility] [address] [place] [address] CENTER Lipid Panel (Fasting) (03/10/2019 4:24 AM LETTUCE CUTTER) Triglycerides 60 mg/dL [facility] Cholesterol 156 mg/dL [facility] HDL 68 mg/dL [facility] LDL Calculated 76 mg/dL [facility] Specimen Blood Narrative Performed At Triglyceride Reference Range: [facility] Low Risk <150 [id number] High Risk 200-499 Very High Risk>=500 Cholesterol Reference Range: Low Risk <200 [id number] High Risk>240 HDL Cholesterol Reference Range: Low Risk >=60 High Risk <40 LDL Cholesterol Reference Range: Optimal<100 Near [id number] Very High >=190 Student Officer ID - REZA Ferguson Performing Organization Address City/State/Zipcode Phone Number [facility] [address] [place] [address] KIMBERLY Urinalysis w/Microscopic + Reflex to Culture (03/09/2019 9:05 PM LETTUCE CUTTER) Color, UA Light Yellow [facility] Clarity, UA Clear [facility] Specific [place], UA 1.010 1.001 - 1.035 [facility] pH, UA 6.5 5.0 - 8.0 [facility] Protein, UA Negative Negative [facility] Glucose, UA 70 mg/dL (A) Negative [facility] Ketones, UA Negative Negative [facility] Bilirubin, UA Negative Negative [facility] Blood[facility] UA Negative Negative [facility] Nitrite, UA Negative Negative [facility] Leukocytes, UA Negative Negative [facility] Urobilinogen, UA 0.2 0.2 - 1.0 mg/dL [facility] RBC, UA <1 /HPF [facility] WBC, UA 1 /HPF [facility] Mucus Rare [facility] Squam Epithel, UA <1 /HPF [facility] Specimen Source [facility] Specimen Urine Narrative Performed At Student Officer ID - [auto] [facility] Student Officer ID - tech Performing Organization Address [facility] Phone Number [address] [address] CENTER Drug screen, urine, comprehensive (03/09/2019 9:05 PM LETTUCE CUTTER) Specimen Urine Narrative Performed At This result has an attachment that is no t available. ABORH, manual (03/09/2019 9:04 PM LETTUCE CUTTER) ABO Grouping O [facility] Rh Factor POS [facility] Specimen Blood Performing Organization Address [facility] Phone Number [address] [address] Screen, urine (03/09/2019 8:46 PM LETTUCE CUTTER) Preg Test, Ur Negative [facility] Specimen Urine Performing Organization Address [facility] Phone Number [address] [address] CENTER Type and screen, automated (03/09/2019 8:18 PM LETTUCE CUTTER) ABO/RH AUTOMATED (BEAKER) O POSITIVE [facility] Ab Scrn NEGATIVE [facility] Specimen Blood Performing Organization Address City/[facility] Phone Number [address] [address] PT/aPTT (03/09/2019 8:18 PM LETTUCE CUTTER) Protime 14.1 11.9 - 14.2 seconds [facility] INR 1.1 <=5.9 [facility] PTT 27.3 22.5 - 36.0 seconds [facility] Specimen Blood Narrative Performed At Effective 07/15/2018: PT Reference Range [facility] Change New: 11.9-14.2Previous: 11.7-14.7 RECOMMENDED COUMADIN/WARFARIN INR THERAPY RANGES STANDARD DOSE: 2.0-3.0Includes: PROPHYLAXIS for venous thrombosis, systemic embolization; TREATMENT for venous thrombosis and/or pulmonary embolus. HIGH RISK: Target INR is 2.5-3.5 for patients wiht mechanical heart valves. Performing Organization Address [facility] Phone Number [facility] [address] [place] [address] KIMBERLY Hepatic function panel (03/09/2019 8:18 PM LETTUCE CUTTER) Protein, Total 7.2 6.0 - 8.3 gm/dL [facility] Albumin 4.1 3.5 - 5.0 g/dL [facility] Total Bilirubin 0.2 0.2 - 1.2 mg/dL [facility] Bilirubin, Direct 0.2 0.1 - 0.5 mg/dL [facility] Alkaline Phosphatase 85 40 - 150 U/L [facility] AST 23 5 - 34 U/L [facility] ALT 19 6 - 55 U/L [facility] Specimen Blood Narrative Performed At Student Officer ID - BS [facility] Performing Organization Address City/State/Zipcode Phone Number [facility] [address] [place] [address] KIMBER[place] CTA carotid (03/09/2019 6:00 PM LETTUCE CUTTER) Specimen Narrative Performed At FINAL REPORT [email or web address] CLINICAL HISTORY: Carotid or vertebral d issection suspected subarachnoid hemorrhage TECHNIQUE: Initially, noncontrast head C T images were performed. Contiguous contrast-enhanced axial image s through the neck followed by axial images through the head with co sherry and sagittal reformations to assess the arterial circ ulation. 3-D reconstructions were performed using a volume rendered t echnique separately on a workstation. This exam was performed according to the departmental dose optimization program which includes auto mated exposure control, adjustment of the mA and/or kV according to the patient size, and/or use of an iterative reconstruction techn ique. Stenosis evaluation reported in complian ce with NASCET criteria. COMPARISON: None FINDINGS: CTA head: Extensive subarachnoid hemorrhage involv ing the right frontal and temporal sulci. Small amount of subarach noid hemorrhage within the left sylvian fissure. Trace intraventric ular extension into the fourth ventricle. Mildly prominent tempo ral horns. No significant mass effect. No evidence of acute territ orial infarct. The skull is intact. There is a large multilobed saccular rig ht MCA aneurysm, with the saccular portion measuring up to 6 mm an d a 1 to 2 mm neck in the region of the MCA bifurcation. No major branch vessel occlusion or high -grade focal stenosis. There are prominent bilateral P-comm's. The major intradural venous sinuses are patent. CTA neck: Great vessel origins: No occlusion or hi gh-grade stenosis. Carotid arteries: No occlusion or high-g rade stenosis. Vertebral arteries: No occlusion or high -grade stenosis. Left vertebral artery originates from the aor tic arch. No fracture or suspicious osseous lesion . Cervical soft tissues are unremarkable. Visualized lung apices are clear. IMPRESSION: 1.Subarachnoid hemorrhage involving the right frontal and temporal sulci, as well as within the left samy n fissure. Trace extension into the fourth ventricle. Mildly promin ent temporal horns, but no prior imaging is available to assess for hydrocephalus. 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 These findings were discussed with Dr. Phyllis MCKEON MD on 03/09/2019 6:31 PM. Signed: Renetta Cho MD Report Verified Date/Time:03/09/2019 18:39:28 Procedure Note Interface, External Ris In - 03/09/2019 6:41 PM LETTUCE CUTTER FINAL REPORT CLINICAL HISTORY: Carotid or vertebral d issection suspected subarachnoid hemorrhage TECHNIQUE: Initially, noncontrast head C T images were performed. Contiguous contrast-enhanced axial image s through the neck followed by axial images through the head with co sherry and sagittal reformations to assess the arterial circ ulation. 3-D reconstructions were performed using a volume rendered t echnique separately on a workstation. This exam was performed according to the departmental dose optimization program which includes auto mated exposure control, adjustment of the mA and/or kV according to the patient size, and/or use of an iterative reconstruction techn ique. Stenosis evaluation reported in complian ce with NASCET criteria. COMPARISON: None FINDINGS: CTA head: Extensive subarachnoid hemorrhage involv ing the right frontal and temporal sulci. Small amount of subarach noid hemorrhage within the left sylvian fissure. Trace intraventric ular extension into the fourth ventricle. Mildly prominent tempo ral horns. No significant mass effect. No evidence of acute territ orial infarct. The skull is intact. There is a large multilobed saccular rig ht MCA aneurysm, with the saccular portion measuring up to 6 mm an d a 1 to 2 mm neck in the region of the MCA bifurcation. No major branch vessel occlusion or high -grade focal stenosis. There are prominent bilateral P-comm's. The major intradural venous sinuses are patent. CTA neck: Great vessel origins: No occlusion or hi gh-grade stenosis. Carotid arteries: No occlusion or high-g rade stenosis. Vertebral arteries: No occlusion or high -grade stenosis. Left vertebral artery originates from the aor tic arch. No fracture or suspicious osseous lesion . Cervical soft tissues are unremarkable. Visualized lung apices are clear. IMPRESSION: 1.Subarachnoid hemorrhage involving the right frontal and temporal sulci, as well as within the left samy n fissure. Trace extension into the fourth ventricle. Mildly promin ent temporal horns, but no prior imaging is available to assess for hydrocephalus. 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 These findings were discussed with Dr. Phyllis MCKEON MD on 03/09/2019 6:31 PM. Signed: Renetta Cho MD Report Verified Date/Time: 03/09/2019 1 8:39:28 Performing Organization Address City/State/Zipcode Phone Number [employer] JONATHAN CTA brain (03/09/2019 6:00 PM LETTUCE CUTTER) Specimen Narrative Performed At FINAL REPORT [facility] CASTILLO CLINICAL HISTORY: Carotid or vertebral d issection suspected subarachnoid hemorrhage TECHNIQUE: Initially, noncontrast head C T images were performed. Contiguous contrast-enhanced axial image s through the neck followed by axial images through the head with co sherry and sagittal reformations to assess the arterial circ ulation. 3-D reconstructions were performed using a volume rendered t echnique separately on a workstation. This exam was performed according to the departmental dose optimization program which includes auto mated exposure control, adjustment of the mA and/or kV according to the patient size, and/or use of an iterative reconstruction techn ique. Stenosis evaluation reported in complian ce with NASCET criteria. COMPARISON: None FINDINGS: CTA head: Extensive subarachnoid hemorrhage involv ing the right frontal and temporal sulci. Small amount of subarach noid hemorrhage within the left sylvian fissure. Trace intraventric ular extension into the fourth ventricle. Mildly prominent tempo ral horns. No significant mass effect. No evidence of acute territ orial infarct. The skull is intact. There is a large multilobed saccular rig ht MCA aneurysm, with the saccular portion measuring up to 6 mm an d a 1 to 2 mm neck in the region of the MCA bifurcation. No major branch vessel occlusion or high -grade focal stenosis. There are prominent bilateral P-comm's. The major intradural venous sinuses are patent. CTA neck: Great vessel origins: No occlusion or hi gh-grade stenosis. Carotid arteries: No occlusion or high-g rade stenosis. Vertebral arteries: No occlusion or high -grade stenosis. Left vertebral artery originates from the aor tic arch. No fracture or suspicious osseous lesion . Cervical soft tissues are unremarkable. Visualized lung apices are clear. IMPRESSION: 1.Subarachnoid hemorrhage involving the right frontal and temporal sulci, as well as within the left samy n fissure. Trace extension into the fourth ventricle. Mildly promin ent temporal horns, but no prior imaging is available to assess for hydrocephalus. 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 These findings were discussed with Dr. Phyllis MCKEON MD on 03/09/2019 6:31 PM. Signed: Renetta Cho MD Report Verified Date/Time:03/09/2019 18:39:28 Procedure Note Interface, External Ris In - 03/09/2019 6:41 PM LETTUCE CUTTER FINAL REPORT CLINICAL HISTORY: Carotid or vertebral d issection suspected subarachnoid hemorrhage TECHNIQUE: Initially, noncontrast head C T images were performed. Contiguous contrast-enhanced axial image s through the neck followed by axial images through the head with co sherry and sagittal reformations to assess the arterial circ ulation. 3-D reconstructions were performed using a volume rendered t echnique separately on a workstation. This exam was performed according to the departmental dose optimization program which includes auto mated exposure control, adjustment of the mA and/or kV according to the patient size, and/or use of an iterative reconstruction techn ique. Stenosis evaluation reported in complian ce with NASCET criteria. COMPARISON: None FINDINGS: CTA head: Extensive subarachnoid hemorrhage involv ing the right frontal and temporal sulci. Small amount of subarach noid hemorrhage within the left sylvian fissure. Trace intraventric ular extension into the fourth ventricle. Mildly prominent tempo ral horns. No significant mass effect. No evidence of acute territ orial infarct. The skull is intact. There is a large multilobed saccular rig ht MCA aneurysm, with the saccular portion measuring up to 6 mm an d a 1 to 2 mm neck in the region of the MCA bifurcation. No major branch vessel occlusion or high -grade focal stenosis. There are prominent bilateral P-comm's. The major intradural venous sinuses are patent. CTA neck: Great vessel origins: No occlusion or hi gh-grade stenosis. Carotid arteries: No occlusion or high-g rade stenosis. Vertebral arteries: No occlusion or high -grade stenosis. Left vertebral artery originates from the aor tic arch. No fracture or suspicious osseous lesion . Cervical soft tissues are unremarkable. Visualized lung apices are clear. IMPRESSION: 1.Subarachnoid hemorrhage involving the right frontal and temporal sulci, as well as within the left samy n fissure. Trace extension into the fourth ventricle. Mildly promin ent temporal horns, but no prior imaging is available to assess for hydrocephalus. 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 These findings were discussed with Dr. Phyllis MCKEON MD on 03/09/2019 6:31 PM. Signed: Renetta Cho MD Report Verified Date/Time: 03/09/2019 1 8:39:28 Performing Organization Address City/State/Zipcode Phone Number GE RIS after 07/02/2018 Advance Directives For more information, please contact:[address] [phone] Code Status Date Activated Date Inactivated Comments Full Code 03/09/2019 4:02 PM 03/17/2019 3:15 PM This code status was determined by: Patient
--- OUTSIDE RECORDS SUMMARY | 2019-07-03 13:32 | XMS REPORT | Summary of Care ---
:1975 Author Organization [facility] Address [address] [place] [address]- Encounter [facility] Howard(DENI) [phone] Date(s): 06/24/19 - 06/24/19 [facility], [place] [address] [place] [address]- [phone] Discharge Disposition: Home or Self Care Attending Physician: Weston Foster MD Referring Physician: Weston Foster MD Vital Signs Most recent to oldest [Reference Range]: 1 Temperature Oral [96.4-99.1 DegF] 98.7 DegF (06/24/19 2:04 PM) Blood Pressure [90-140/60-90 mmHg] 175/111 mmHg *HI* (06/24/19 2:04 PM) Respiratory Rate [14-20 BRMIN] 16 BRMIN (06/24/19 2:04 PM) Peripheral Pulse Rate [60-100 bpm] 85 bpm (06/24/19 2:04 PM) Problem List Condition Effective Dates Status Health Status Informant Aneurysm(Confirmed) Active SAH (subarachnoid Active hemorrhage)(Confirmed) Hypertension(Confirmed) Active PBA (pseudobulbar affect)(Confirmed) Active Allergies, Adverse Reactions, Alerts No Known Allergies Medications amLODIPine 5 mg, PO, Daily, 0 Refill(s) Start Date: 06/24/19 Status: Orderedlosartan 50 mg oral tablet 0 Refill(s) Start Date: 06/24/19 Status: Ordered Results No data available for this section Immunizations No data available for this section Procedures Procedure Date Related Diagnosis Body Site Status Coil procedure Completed Social History Social History Type Response Employment/School 1 Smoking Status Current every day smoker; Ty pe: Cigarettes; Exposure to Tobacco Smoke Unable to obtain; Cigarette Smoking Last 365 Days Unable to obtain; Reg Smoking Cessation Counseling Yes2 entered on: 06/24/19 1May release medical information to Rufino Muller1/2 a pack to a pack aday Assessment and Plan No data available for this section
--- OUTSIDE RECORDS SUMMARY | 2019-07-03 13:34 | XMS REPORT ---
:1975 Author Organization [facility] t Address [address] [place] [address] Care Team Providers Name Role Phone Narciso Foster Attending Clinician Aaron MARSHALL Attending Clinician Unavailable Aaron MARSHALL Admitting Clinician Unavailable Problems This patient has no known problems. Allergies, Adverse Reactions, Alerts This patient has no known allergies or adverse reactions. Medications This patient has no known medications. Procedures This patient has no known procedures. Encounters Start End Encounter Admission Attending Care Care Encounter Source Date/Time Date/Time Type Type Clinicians Facility Department ID 2019-06-24 2019-06-24 Outpatient AUBREY Foster [facility] [id number] 14:15:00 23:59:59 [place] [facility] Results Test Description Test Time Test Comments Results Result Comments Source BASIC METABOLIC PANEL 2019-03-17 08:13:00 Test Item Value Reference Range Interpretation Comme nts SODIUM (BEAKER) (test code 137 meq/L 136-145 = 381) POTASSIUM (BEAKER) (test 4.1 meq/L 3.5-5.1 code = 379) CHLORIDE (BEAKER) (test 106 meq/L 98-107 code = 382) CO2 (BEAKER) (test code = 25 meq/L 22-29 355) BLOOD UREA NITROGEN 13 mg/dL 7-21 (BEAKER) (test code = 354) CREATININE (BEAKER) (test 0.68 mg/dL 0.57-1.25 code = 358) GLUCOSE RANDOM (BEAKER) 100 mg/dL 70-105 (test code = 652) CALCIUM (BEAKER) (test code 9.5 mg/dL 8.4-10.2 = 697) EGFR (BEAKER) (test code = 94 mL/min/1.73 sq m ESTIMATED GFR IS NOT 1092) ACCURATE CRE ATININE CLEARANCE IN MD EDICTING GLOMERULAR FILT RATION RATE. ESTIMATED GFR IS NOT APPLICABLE FOR DIALYSIS PATIENTS. Textile Finisher ID - REZA [id number] 08:11:00 Test Item Value Reference Range Interpretation Comments PARTIAL THROMBOPLASTIN TIME 27.2 seconds 22.5-36.0 (BEAKER) (test code = 760) PROTHROMBIN [id number] 08:10:00 Test Item Value Reference Range Interpretation Comments PROTIME (BEAKER) (test code = 13.1 seconds 11.9-14.2 759) INR (BEAKER) (test code = 370) 1.0 <=5.9 Effective 07/15/2018: PT Reference Range ChangeNew: 11.9-14.2 Previous: 11.7- 14.7RECOMMENDED COUMADIN/WARFARIN INR THERAPY RANGESSTANDARD DOSE: 2.0-3.0 Includes: PROPHYLAXIS for venous thrombosis, systemic embolization; TREATMENT for venous thrombosis and/or pulmonary embolus.HIGH RISK: Target INR is2.5-3.5 for patients wiht mechanical heart valves.CBC W/PLT COUNT & AUTO [id number] 08:00:00 Test Item Value Reference Range Interpretation Comments WHITE BLOOD CELL COUNT (BEAKER) 8.9 K/ L 3.5-10.5 (test code = 775) RED BLOOD CELL COUNT (BEAKER) 4.19 M/ L 3.93-5.22 (test code = 761) HEMOGLOBIN (BEAKER) (test code = 9.4 GM/DL 11.2-15.7 L 410) HEMATOCRIT (BEAKER) (test code = 31.0 % 34.1-44.9 L 411) MEAN CORPUSCULAR VOLUME (BEAKER) 74.0 fL 79.4-94.8 L (test code = 753) MEAN CORPUSCULAR HEMOGLOBIN 22.4 pg 25.6-32.2 L (BEAKER) (test code = 751) MEAN CORPUSCULAR HEMOGLOBIN CONC 30.3 GM/DL 32.2-35.5 L (BEAKER) (test code = 752) RED CELL DISTRIBUTION WIDTH 21.9 % 11.7-14.4 H (BEAKER) (test code = 412) PLATELET COUNT (BEAKER) (test 585 K/CU MM 150-450 H code = 756) MEAN PLATELET VOLUME (BEAKER) 8.9 fL 9.4-12.3 L (test code = 754) NUCLEATED RED BLOOD CELLS 0 /100 WBC 0-0 (BEAKER) (test code = 413) NEUTROPHILS RELATIVE PERCENT 62 % (BEAKER) (test code = 429) LYMPHOCYTES RELATIVE PERCENT 22 % (BEAKER) (test code = 430) MONOCYTES RELATIVE PERCENT 13 % (BEAKER) (test code = 431) EOSINOPHILS RELATIVE PERCENT 2 % (BEAKER) (test code = 432) BASOPHILS RELATIVE PERCENT 1 % (BEAKER) (test code = 437) NEUTROPHILS ABSOLUTE COUNT 5.47 K/ L 1.56-6.13 (BEAKER) (test code = 670) LYMPHOCYTES ABSOLUTE COUNT 1.93 K/ L 1.18-3.74 (BEAKER) (test code = 414) MONOCYTES ABSOLUTE COUNT (BEAKER) 1.19 K/ L 0.24-0.36 H (test code = 415) EOSINOPHILS ABSOLUTE COUNT 0.14 K/ L 0.04-0.36 (BEAKER) (test code = 416) BASOPHILS ABSOLUTE COUNT (BEAKER) 0.10 K/ L 0.01-0.08 H (test code = 417) IMMATURE GRANULOCYTES-RELATIVE 1 % 0-1 PERCENT (BEAKER) (test code = 2801) [id number] 13:15:00 Test Item Value Reference Range Interpretation Comments MAGNESIUM (BEAKER) (test code = 2.1 mg/dL 1.6-2.6 627) Textile Finisher ID - HIMANSHU [id number] 05:16:00 Test Item Value Reference Range Interpretation Comments PARTIAL THROMBOPLASTIN TIME 29.9 seconds 22.5-36.0 (BEAKER) (test code = 760) PROTHROMBIN TIME/[id number] 05:15:00 Test Item Value Reference Range Interpretation Comments PROTIME (BEAKER) (test code = 13.1 seconds 11.9-14.2 759) INR (BEAKER) (test code = 370) 1.0 <=5.9 Effective 07/15/2018: PT Reference Range ChangeNew: 11.9-14.2 Previous: 11.7- 14.7RECOMMENDED COUMADIN/WARFARIN INR THERAPY RANGESSTANDARD DOSE: 2.0-3.0 Includes: PROPHYLAXIS for venous thrombosis, systemic embolization; TREATMENT for venous thrombosis and/or pulmonary embolus.HIGH RISK: Target INR is2.5-3.5 for patients wiht mechanical heart valves.[id number] 05:12:00 Test Item Value Reference Range Interpretation Comments PHOSPHORUS (BEAKER) (test code = 4.2 mg/dL 2.3-4.7 604) Textile Finisher ID - REZA [id number] 05:12:00 Test Item Value Reference Range Interpretation Comments MAGNESIUM (BEAKER) (test code = 2.1 mg/dL 1.6-2.6 627) Textile Finisher ID - REZA MBASIC METABOLIC [id number] 05:12:00 Test Item Value Reference Range Interpretation Comments SODIUM (BEAKER) 137 meq/L 136-145 (test code = 381) POTASSIUM (BEAKER) 4.1 meq/L 3.5-5.1 (test code = 379) CHLORIDE (BEAKER) 105 meq/L 98-107 (test code = 382) CO2 (BEAKER) (test 23 meq/L 22-29 code = 355) BLOOD UREA NITROGEN 18 mg/dL 7-21 (BEAKER) (test code = 354) CREATININE (BEAKER) 0.76 mg/dL 0.57-1.25 (test code = 358) GLUCOSE RANDOM 104 mg/dL 70-105 (BEAKER) (test code = 652) CALCIUM (BEAKER) 9.3 mg/dL 8.4-10.2 (test code = 697) EGFR (BEAKER) (test 82 mL/min/1.73 ESTIMA LONG GFR IS code = 1092) sq m NOT ACCURATE CREATININE CLEARANCE IN PREDICTING GLOMERULAR FILTRATION RATE . ESTIMATED GFR I S NOT APPLICABLE FOR DIALYSIS PATIEN TS. Textile Finisher ID - REZA MCBC W/PLT COUNT & AUTO [id number] 05:01:00 Test Item Value Reference Range Interpretation Comments WHITE BLOOD CELL COUNT (BEAKER) 10.0 K/ L 3.5-10.5 (test code = 775) RED BLOOD CELL COUNT (BEAKER) 4.22 M/ L 3.93-5.22 (test code = 761) HEMOGLOBIN (BEAKER) (test code = 9.6 GM/DL 11.2-15.7 L 410) HEMATOCRIT (BEAKER) (test code = 30.8 % 34.1-44.9 L 411) MEAN CORPUSCULAR VOLUME (BEAKER) 73.0 fL 79.4-94.8 L (test code = 753) MEAN CORPUSCULAR HEMOGLOBIN 22.7 pg 25.6-32.2 L (BEAKER) (test code = 751) MEAN CORPUSCULAR HEMOGLOBIN CONC 31.2 GM/DL 32.2-35.5 L (BEAKER) (test code = 752) RED CELL DISTRIBUTION WIDTH 21.6 % 11.7-14.4 H (BEAKER) (test code = 412) PLATELET COUNT (BEAKER) (test 633 K/CU MM 150-450 H code = 756) MEAN PLATELET VOLUME (BEAKER) 9.3 fL 9.4-12.3 L (test code = 754) NUCLEATED RED BLOOD CELLS 0 /100 WBC 0-0 (BEAKER) (test code = 413) NEUTROPHILS RELATIVE PERCENT 62 % (BEAKER) (test code = 429) LYMPHOCYTES RELATIVE PERCENT 22 % (BEAKER) (test code = 430) MONOCYTES RELATIVE PERCENT 13 % (BEAKER) (test code = 431) EOSINOPHILS RELATIVE PERCENT 2 % (BEAKER) (test code = 432) BASOPHILS RELATIVE PERCENT 1 % (BEAKER) (test code = 437) NEUTROPHILS ABSOLUTE COUNT 6.21 K/ L 1.56-6.13 H (BEAKER) (test code = 670) LYMPHOCYTES ABSOLUTE COUNT 2.14 K/ L 1.18-3.74 (BEAKER) (test code = 414) MONOCYTES ABSOLUTE COUNT (BEAKER) 1.27 K/ L 0.24-0.36 H (test code = 415) EOSINOPHILS ABSOLUTE COUNT 0.19 K/ L 0.04-0.36 (BEAKER) (test code = 416) BASOPHILS ABSOLUTE COUNT (BEAKER) 0.11 K/ L 0.01-0.08 H (test code = 417) IMMATURE GRANULOCYTES-RELATIVE 1 % 0-1 PERCENT (BEAKER) (test code = 2801) [id number] 04:25:00 Test Item Value Reference Range Interpretation Comments PHOSPHORUS (BEAKER) (test code = 4.0 mg/dL 2.3-4.7 604) Textile Finisher ID Regulo MORAN [id number] 04:25:00 Test Item Value Reference Range Interpretation Comments MAGNESIUM (BEAKER) (test code = 1.9 mg/dL 1.6-2.6 627) Textile Finisher ID Regulo MORAN WBASIC METABOLIC [id number] 04:25:00 Test Item Value Reference Range Interpretation Comments SODIUM (BEAKER) 136 meq/L 136-145 (test code = 381) POTASSIUM (BEAKER) 3.9 meq/L 3.5-5.1 (test code = 379) CHLORIDE (BEAKER) 104 meq/L 98-107 (test code = 382) CO2 (BEAKER) (test 24 meq/L 22-29 code = 355) BLOOD UREA NITROGEN 15 mg/dL 7-21 (BEAKER) (test code = 354) CREATININE (BEAKER) 0.68 mg/dL 0.57-1.25 (test code = 358) GLUCOSE RANDOM 109 mg/dL 70-105 H (BEAKER) (test code = 652) CALCIUM (BEAKER) 9.8 mg/dL 8.4-10.2 (test code = 697) EGFR (BEAKER) (test 94 mL/min/1.73 ESTIMA LONG GFR IS code = 1092) sq m NOT ACCURATE CREATININE CLEARANCE IN PREDICTING GLOMERULAR FILTRATION RATE . ESTIMATED GFR I S NOT APPLICABLE FOR DIALYSIS PATIEN TS. Textile Finisher ID Regulo MORAN WCBC W/PLT COUNT & AUTO [id number] 04:09:00 Test Item Value Reference Range Interpretation Comments WHITE BLOOD CELL COUNT (BEAKER) 12.7 K/ L 3.5-10.5 H (test code = 775) RED BLOOD CELL COUNT (BEAKER) 4.32 M/ L 3.93-5.22 (test code = 761) HEMOGLOBIN (BEAKER) (test code = 9.6 GM/DL 11.2-15.7 L 410) HEMATOCRIT (BEAKER) (test code = 31.7 % 34.1-44.9 L 411) MEAN CORPUSCULAR VOLUME (BEAKER) 73.4 fL 79.4-94.8 L (test code = 753) MEAN CORPUSCULAR HEMOGLOBIN 22.2 pg 25.6-32.2 L (BEAKER) (test code = 751) MEAN CORPUSCULAR HEMOGLOBIN CONC 30.3 GM/DL 32.2-35.5 L (BEAKER) (test code = 752) RED CELL DISTRIBUTION WIDTH 21.2 % 11.7-14.4 H (BEAKER) (test code = 412) PLATELET COUNT (BEAKER) (test 633 K/CU MM 150-450 H code = 756) MEAN PLATELET VOLUME (BEAKER) 9.1 fL 9.4-12.3 L (test code = 754) NUCLEATED RED BLOOD CELLS 0 /100 WBC 0-0 (BEAKER) (test code = 413) NEUTROPHILS RELATIVE PERCENT 67 % (BEAKER) (test code = 429) LYMPHOCYTES RELATIVE PERCENT 20 % (BEAKER) (test code = 430) MONOCYTES RELATIVE PERCENT 10 % (BEAKER) (test code = 431) EOSINOPHILS RELATIVE PERCENT 2 % (BEAKER) (test code = 432) BASOPHILS RELATIVE PERCENT 1 % (BEAKER) (test code = 437) NEUTROPHILS ABSOLUTE COUNT 8.47 K/ L 1.56-6.13 H (BEAKER) (test code = 670) LYMPHOCYTES ABSOLUTE COUNT 2.54 K/ L 1.18-3.74 (BEAKER) (test code = 414) MONOCYTES ABSOLUTE COUNT (BEAKER) 1.32 K/ L 0.24-0.36 H (test code = 415) EOSINOPHILS ABSOLUTE COUNT 0.19 K/ L 0.04-0.36 (BEAKER) (test code = 416) BASOPHILS ABSOLUTE COUNT (BEAKER) 0.12 K/ L 0.01-0.08 H (test code = 417) IMMATURE GRANULOCYTES-RELATIVE 1 % 0-1 PERCENT (BEAKER) (test code = 2801) [id number] 04:08:00 Test Item Value Reference Range Interpretation Comments PARTIAL THROMBOPLASTIN TIME 38.8 seconds 22.5-36.0 H (BEAKER) (test code = 760) PROTHROMBIN [id number] 04:07:00 Test Item Value Reference Range Interpretation Comments PROTIME (BEAKER) (test code = 13.1 seconds 11.9-14.2 759) INR (BEAKER) (test code = 370) 1.0 <=5.9 Effective 07/15/2018: PT Reference Range ChangeNew: 11.9-14.2 Previous: 11.7- 14.7RECOMMENDED COUMADIN/WARFARIN INR THERAPY RANGESSTANDARD DOSE: 2.0-3.0 Includes: PROPHYLAXIS for venous thrombosis, systemic embolization; TREATMENT for venous thrombosis and/or pulmonary embolus.HIGH RISK: Target INR is2.5-3.5 for patients wiht mechanical heart valves.[id number] 04:10:00 Test Item Value Reference Range Interpretation Comments PHOSPHORUS (BEAKER) (test code = 4.3 mg/dL 2.3-4.7 604) Textile Finisher ID Regulo MORAN [id number] 04:10:00 Test Item Value Reference Range Interpretation Comments MAGNESIUM (BEAKER) (test code = 1.8 mg/dL 1.6-2.6 627) Textile Finisher ID Regulo MORAN WBASIC METABOLIC [id number] 04:10:00 Test Item Value Reference Range Interpretation Comments SODIUM (BEAKER) 138 meq/L 136-145 (test code = 381) POTASSIUM (BEAKER) 4.0 meq/L 3.5-5.1 (test code = 379) CHLORIDE (BEAKER) 106 meq/L 98-107 (test code = 382) CO2 (BEAKER) (test 23 meq/L 22-29 code = 355) BLOOD UREA NITROGEN 9 mg/dL 7-21 (BEAKER) (test code = 354) CREATININE (BEAKER) 0.69 mg/dL 0.57-1.25 (test code = 358) GLUCOSE RANDOM 112 mg/dL 70-105 H (BEAKER) (test code = 652) CALCIUM (BEAKER) 9.3 mg/dL 8.4-10.2 (test code = 697) EGFR (BEAKER) (test 92 mL/min/1.73 ESTIMA LONG GFR IS code = 1092) sq m NOT ACCURATE CREATININE CLEARANCE IN PREDICTING GLOMERULAR FILTRATION RATE . ESTIMATED GFR I S NOT APPLICABLE FOR DIALYSIS PATIEN TS. Textile Finisher ID Regulo MORAN [id number] 04:02:00 Test Item Value Reference Range Interpretation Comments PARTIAL THROMBOPLASTIN TIME 39.4 seconds 22.5-36.0 H (BEAKER) (test code = 760) PROTHROMBIN [id number] 04:01:00 Test Item Value Reference Range Interpretation Comments PROTIME (BEAKER) (test code = 13.5 seconds 11.9-14.2 759) INR (BEAKER) (test code = 370) 1.1 <=5.9 Effective 07/15/2018: PT Reference Range ChangeNew: 11.9-14.2 Previous: 11.7- 14.7RECOMMENDED COUMADIN/WARFARIN INR THERAPY RANGESSTANDARD DOSE: 2.0-3.0 Includes: PROPHYLAXIS for venous thrombosis, systemic embolization; TREATMENT for venous thrombosis and/or pulmonary embolus.HIGH RISK: Target INR is2.5-3.5 for patients wiht mechanical heart valves.CBC W/PLT COUNT & AUTO [id number] 03:45:00 Test Item Value Reference Range Interpretation Comments WHITE BLOOD CELL COUNT (BEAKER) 12.7 K/ L 3.5-10.5 H (test code = 775) RED BLOOD CELL COUNT (BEAKER) 4.26 M/ L 3.93-5.22 (test code = 761) HEMOGLOBIN (BEAKER) (test code = 9.5 GM/DL 11.2-15.7 L 410) HEMATOCRIT (BEAKER) (test code = 30.8 % 34.1-44.9 L 411) MEAN CORPUSCULAR VOLUME (BEAKER) 72.3 fL 79.4-94.8 L (test code = 753) MEAN CORPUSCULAR HEMOGLOBIN 22.3 pg 25.6-32.2 L (BEAKER) (test code = 751) MEAN CORPUSCULAR HEMOGLOBIN CONC 30.8 GM/DL 32.2-35.5 L (BEAKER) (test code = 752) RED CELL DISTRIBUTION WIDTH 20.4 % 11.7-14.4 H (BEAKER) (test code = 412) PLATELET COUNT (BEAKER) (test 650 K/CU MM 150-450 H code = 756) MEAN PLATELET VOLUME (BEAKER) 9.3 fL 9.4-12.3 L (test code = 754) NUCLEATED RED BLOOD CELLS 0 /100 WBC 0-0 (BEAKER) (test code = 413) NEUTROPHILS RELATIVE PERCENT 67 % (BEAKER) (test code = 429) LYMPHOCYTES RELATIVE PERCENT 20 % (BEAKER) (test code = 430) MONOCYTES RELATIVE PERCENT 10 % (BEAKER) (test code = 431) EOSINOPHILS RELATIVE PERCENT 2 % (BEAKER) (test code = 432) BASOPHILS RELATIVE PERCENT 1 % (BEAKER) (test code = 437) NEUTROPHILS ABSOLUTE COUNT 8.44 K/ L 1.56-6.13 H (BEAKER) (test code = 670) LYMPHOCYTES ABSOLUTE COUNT 2.56 K/ L 1.18-3.74 (BEAKER) (test code = 414) MONOCYTES ABSOLUTE COUNT (BEAKER) 1.25 K/ L 0.24-0.36 H (test code = 415) EOSINOPHILS ABSOLUTE COUNT 0.22 K/ L 0.04-0.36 (BEAKER) (test code = 416) BASOPHILS ABSOLUTE COUNT (BEAKER) 0.14 K/ L 0.01-0.08 H (test code = 417) IMMATURE GRANULOCYTES-RELATIVE 1 % 0-1 PERCENT (BEAKER) (test code = 2801) [id number] 16:44:00 Test Item Value Reference Range Interpretation Comments POTASSIUM (BEAKER) (test code = 4.4 meq/L 3.5-5.1 379) Textile Finisher ID - REZA [id number] 16:44:00 Test Item Value Reference Range Interpretation Comments MAGNESIUM (BEAKER) (test code = 2.1 mg/dL 1.6-2.6 627) Textile Finisher ID - REZA [id number] 16:44:00 Test Item Value Reference Range Interpretation Comments SODIUM (BEAKER) (test code = 381) 138 meq/L 136-145 Textile Finisher ID - REZA [id number] 05:24:00 Test Item Value Reference Range Interpretation Comments MAGNESIUM (BEAKER) 1.7 mg/dL 1.6-2.6 Specimen slightly (test code = 627) hemolyzed Textile Finisher ID - REZA [id number] 05:24:00 Test Item Value Reference Range Interpretation Comments PHOSPHORUS (BEAKER) 3.4 mg/dL 2.3-4.7 Specimen slightly (test code = 604) hemolyzed Textile Finisher ID - REZA MBASIC METABOLIC [id number] 05:24:00 Test Item Value Reference Range Interpretation Comments SODIUM (BEAKER) (test 139 meq/L 136-145 code = 381) POTASSIUM (BEAKER) 3.8 meq/L 3.5-5.1 Specimen slightly (test code = 379) hemolyzed CHLORIDE (BEAKER) 106 meq/L 98-107 (test code = 382) CO2 (BEAKER) (test 27 meq/L 22-29 code = 355) BLOOD UREA NITROGEN 7 mg/dL 7-21 (BEAKER) (test code = 354) CREATININE (BEAKER) 0.64 mg/dL 0.57-1.25 Specimen slightly (test code = 358) hemolyzed GLUCOSE RANDOM 92 mg/dL 70-105 (BEAKER) (test code = 652) CALCIUM (BEAKER) 8.9 mg/dL 8.4-10.2 (test code = 697) EGFR (BEAKER) (test INSUFFIC IENT CLINICAL code = 1092) DATA TO CALCULA TE ESTIMATED GFR. Textile Finisher ID - REZA [id number] 05:13:00 Test Item Value Reference Range Interpretation Comments PARTIAL THROMBOPLASTIN TIME 32.2 seconds 22.5-36.0 (BEAKER) (test code = 760) PROTHROMBIN [id number] 05:12:00 Test Item Value Reference Range Interpretation Comments PROTIME (BEAKER) (test code = 13.4 seconds 11.9-14.2 759) INR (BEAKER) (test code = 370) 1.1 <=5.9 Effective 07/15/2018: PT Reference Range ChangeNew: 11.9-14.2 Previous: 11.7- 14.7RECOMMENDED COUMADIN/WARFARIN INR THERAPY RANGESSTANDARD DOSE: 2.0-3.0 Includes: PROPHYLAXIS for venous thrombosis, systemic embolization; TREATMENT for venous thrombosis and/or pulmonary embolus.HIGH RISK: Target INR is2.5-3.5 for patients wiht mechanical heart valves.CBC W/PLT COUNT & AUTO [id number] 05:05:00 Test Item Value Reference Range Interpretation Comments WHITE BLOOD CELL COUNT (BEAKER) 11.8 K/ L 3.5-10.5 H (test code = 775) RED BLOOD CELL COUNT (BEAKER) 4.01 M/ L 3.93-5.22 (test code = 761) HEMOGLOBIN (BEAKER) (test code = 9.1 GM/DL 11.2-15.7 L 410) HEMATOCRIT (BEAKER) (test code = 28.8 % 34.1-44.9 L 411) MEAN CORPUSCULAR VOLUME (BEAKER) 71.8 fL 79.4-94.8 L (test code = 753) MEAN CORPUSCULAR HEMOGLOBIN 22.7 pg 25.6-32.2 L (BEAKER) (test code = 751) MEAN CORPUSCULAR HEMOGLOBIN CONC 31.6 GM/DL 32.2-35.5 L (BEAKER) (test code = 752) RED CELL DISTRIBUTION WIDTH 19.5 % 11.7-14.4 H (BEAKER) (test code = 412) PLATELET COUNT (BEAKER) (test 602 K/CU MM 150-450 H code = 756) MEAN PLATELET VOLUME (BEAKER) 9.4 fL 9.4-12.3 (test code = 754) NUCLEATED RED BLOOD CELLS 0 /100 WBC 0-0 (BEAKER) (test code = 413) NEUTROPHILS RELATIVE PERCENT 61 % (BEAKER) (test code = 429) LYMPHOCYTES RELATIVE PERCENT 24 % (BEAKER) (test code = 430) MONOCYTES RELATIVE PERCENT 12 % (BEAKER) (test code = 431) EOSINOPHILS RELATIVE PERCENT 2 % (BEAKER) (test code = 432) BASOPHILS RELATIVE PERCENT 1 % (BEAKER) (test code = 437) NEUTROPHILS ABSOLUTE COUNT 7.20 K/ L 1.56-6.13 H (BEAKER) (test code = 670) LYMPHOCYTES ABSOLUTE COUNT 2.78 K/ L 1.18-3.74 (BEAKER) (test code = 414) MONOCYTES ABSOLUTE COUNT (BEAKER) 1.40 K/ L 0.24-0.36 H (test code = 415) EOSINOPHILS ABSOLUTE COUNT 0.21 K/ L 0.04-0.36 (BEAKER) (test code = 416) BASOPHILS ABSOLUTE COUNT (BEAKER) 0.12 K/ L 0.01-0.08 H (test code = 417) IMMATURE GRANULOCYTES-RELATIVE 1 % 0-1 PERCENT (BEAKER) (test code = 2801) POCT-GLUCOSE [id number] 00:24:00 Test Item Value Reference Range Interpretation Comments POC-GLUCOSE METER 88 mg/dL 70-110 : TESTED A T [facility] 6720 (BEAKER) (test code = STAS HAGER ME, 1538) [address]: Textile Finisher/Techni doreen ID = [id number] for BRIAN PIÑA, ANGIOGRAM, [id number] 14:28:00Reason for exam:->ruptured aneurysm FINAL REPORT DATE OF SERVICE: 03/10/2019 12:55 PM SURGEON: Thee Batista SUCTION OPERATOR: Rafal Sanders M.D. PREOPERATIVE DIAGNOSIS: Subarachnoid hemorrhage POSTOPERATIVE DIAGNOSIS: Ruptured right middle cerebral artery aneurysm OPERATION: 1) Cerebral Angiogram2) Coil Embolization of the right middle cerebral artery aneurysm ANESTHESIA: General COMPLICATIONS: none EBL: less than 25cc INDICATIONS: 43-year-old woman presented with one day of severe headaches, found to have aneurysmal subarachnoid hemorrhage on CT head. CT angiogram showed a right proximal MCA branch aneurysm, suspicious for the source of subarachnoid hemorrhage. The patient was taken for angiogramin order to better characterize the aneurysm and for possible treatment. PROCEDURE: Following explanation of the benefits, risks and alternatives for the procedure, informed consent was obtained from the patient. The risks including but not limited to stroke, intracranial hemorrhage, vascular injury to the cervical or femoral vessels and groin hematoma were discussed with the patient. A time-out wasperformed. Both groins were prepped in the usual sterile fashion using Chloraprep, and sterilely draped. A single wall puncture of the right femoral artery was performed and a 5-Fr short sheath was inserted into the right common femoral artery and maintained on heparinized flush. Using coaxial technique a 5 Angolan angled glide catheter was advanced into the descending aorta then into the aortic arch,and with the aid of the roadmapping, digital fluoroscopy, and careful guidewire manipulation the: Right vertebral artery, right common carotid artery, right external carotid artery, right internal carotid artery, left common carotid artery, left subclavian artery, and left vertebral artery were catheterized. Upon each successive selective catheterization, digital subtraction angiography using the appropriate rate and volume of contrast in multiple projections was performed. 3-D rotational and Doni CT images were also performed. These were processed on a separate workstation and reviewed independently by Dr. Brewre. After completion of the diagnostic portion of the angiogram, we proceeded with endovascular treatment. The 5 Angolan short sheath was replaced with an Infinity catheter, and we pro ceeded with endovascular intervention. After completion of intervention, the guide sheath was removed and the groin was closed with a 6 Angolan Angio-Seal device. The patient was then accompanied to theneurological intensive care unit for recovery. FINDINGS: RIGHT COMMON FEMORAL ARTERY (DSA-PA, LATERAL-GROIN) The sheath enters the common femoral artery above the bifurcation. The common femoral arteryis normal in appearance without tortuosity. RIGHT COMMON CAROTID ARTERY (DSA - PA, LATERAL - CERVICAL) The origins of the right internal and external carotid arteries are widely patent without evidenceof ulceration or stenosis. RIGHT EXTERNAL CAROTID ARTERY (DSA-PA, LATERAL-HEAD) The visualized branches of the external carotid artery are normal in course and appearance. This includes the occipital artery, superficial temporal artery, ascending pharyngeal artery, and parts of the internal maxillaryartery. Capillary phase is normal. There is no evidence of arteriovenous fistula. 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 The aneurysm has a narrow neck measuring 2.4 mm in diameter. There are several daughter sacs arising from the dome of the aneurysm. The aneurysm projects laterally. Anterior cerebral artery is normal in course and appearance.There is flash filling across the anterior communicating artery. The remainder of the middle cerebral artery is normal in course and appearance. There is a large size posterior communicating artery. Novascular malformation or arteriovenous shunting is noted. No stenosis or vasospasm is observed. No si gnificant abnormalities are seen in the capillary and venous phases. The venous phase demonstrates patent transverse and sigmoid sinuses. RIGHT VERTEBRAL ARTERY (DSA-PA, LATERAL-HEAD) The right vertebral artery is normal in course and appearance. The right PICA fills fully and is normal in course and appearance. There is no retrograde filling of the left vertebral artery. The basilar artery is normalin course and appearance. 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 The left posterior cerebral artery fills fully and is normal in course and appearance. The right posterior cerebralartery is largely washed out with predominant flow through the posterior communicating artery. The capillary phase is normal. Bilateral transverse and sigmoid sinuses are normal in appearance. There isno evidence of aneurysm, arteriovenous malformation, or fistula. LEFT COMMON CAROTID ARTERY (DSA - PA, LATERAL - CERVICAL) The origins of the left internal and external carotid arteries are widely patent without evidence of ulceration or stenosis. LEFT COMMON CAROTID ARTERY (DSA - PA, LATERAL, OBLIQUE- HEAD) The visualized cervical, petrous, cavernous and supraclinoid portions of the internal carotidartery are normal in course and appearance. The anterior cerebral and middle cerebral arteries fill fully and are normal in course and appearance. There is a large size posterior communicating artery. There is flash crossfilling across the anterior communicating artery. No aneurysms, vascular malformations, stenosis, or vasospasm is observed. No significant abnormalities are seen in the capillary andvenous phases. The venous phase demonstrates patent transverse and sigmoid sinuses. Visualized portions of the external carotid artery are normal in course and appearance. There is no evidence of arteriovenous fistula. LEFT SUBCLAVIAN ARTERY (ROADMAP - PA - CERVICAL) The origin of the left vertebral a rtery is patent without significant stenosis. LEFT VERTEBRAL ARTERY (DSA - PA, LATERAL - HEAD) The left vertebral artery is patent without significant stenotic lesion. The basilar artery shows no significant abnormality. 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 No aneurysms, vascular malformations, or stenotic lesions are noted in the vertebrobasilar system. The venous phase shows patent bilateral transverse and sigmoid sinuses. ENDOVASCULAR TREATMENT: Aneurysm appeared amenable to endovascular treatment given the location and neuro neck. We exchanged the 5 Angolan short sheath for a 6 Angolan Infinity guide sheath. Using a guidewire and 2 Oliveira catheter, we catheterized the right common carotid artery and advance the Infinity guide catheter into the right common carotid artery. Then using the Cat5 distal access catheter, we advanced the system into the internal carotid artery, projecting the guide sheath the junction of the right cervical and petrous internal carotid artery. At this time we advanced a microcatheter over a standard Synchro microwire, carefully positioning the tip of the microcatheter within the aneurysm. Next a 5 mm x 20 cm target 360 soft coil was carefully and tediously framed within a complex shape of the aneurysm, with coil loops extending into each of the different lobes the aneurysm but respecting the neck of the aneurysm. The guide sheath angiogram was performed which demonstrated full patency of the parent artery and good position of the coils.This coil was detached. Next a 2 mm x 3 cm target 360 Kacie coil was carefully deployed within the initial framing coil, and another guide sheath angiogram was performed demonstrating occlusion of the aneurysm and no untoward findings. The coil was detached. At this time a final guide sheath angiogram was performed, which showed a small amount of clot extending from the coil mass to the aneurysm neck and causing delayed filling of the proximal branch past the origin of the aneurysm. The patient was loaded with Aggrastat 0.4 mcg/kg, which was delivered slowly and tediously through the microcatheter now positioned in the proximal M1 middle cerebral artery. Multiple additional guide sheath angiograms were performed over the next 30 minutes to ensure that propagation of the clot had ceased. By the final guide sheath angiogram, the size of the clot had noted to have decreased, with improved flow through the parent branch of the aneurysm. The aneurysm remained occluded. The microcatheter was removed, and another DSA was obtained from the right internal carotid artery showing no untoward , and aneurysm occlusion. Whole head PA and lateral angiogram demonstrated no untoward findings and wide patency of all of the afferent and efferent vessels. SUPERVISION AND INTERPRETATION: Angiographic study demonstrates: 1. 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 2. 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 No immediate technical or clinical complications. Signed: Sally Brewer MDReport Verified Date/Time: 03/12/2019 14:28:32 Reading Location: [place] [address] Neuro Angio Reading Room BASIC METABOLIC [id number] 06:37:00 Test Item Value Reference Range Interpretation Comments SODIUM (BEAKER) (test 141 meq/L 136-145 code = 381) POTASSIUM (BEAKER) 3.5 meq/L 3.5-5.1 (test code = 379) CHLORIDE (BEAKER) 109 meq/L 98-107 H (test code = 382) CO2 (BEAKER) (test 26 meq/L 22-29 code = 355) BLOOD UREA NITROGEN 7 mg/dL 7-21 (BEAKER) (test code = 354) CREATININE (BEAKER) 0.64 mg/dL 0.57-1.25 (test code = 358) GLUCOSE RANDOM 97 mg/dL 70-105 (BEAKER) (test code = 652) CALCIUM (BEAKER) 7.9 mg/dL 8.4-10.2 L (test code = 697) EGFR (BEAKER) (test INSUFFIC IENT CLINICAL code = 1092) DATA TO CALCULA TE ESTIMATED GFR. Textile Finisher ID - REZA MCBC W/PLT COUNT & AUTO [id number] 06:37:00 Test Item Value Reference Range Interpretation Comments WHITE BLOOD CELL COUNT (BEAKER) 11.0 K/ L 3.5-10.5 H (test code = 775) RED BLOOD CELL COUNT (BEAKER) 3.76 M/ L 3.93-5.22 L (test code = 761) HEMOGLOBIN (BEAKER) (test code = 8.3 GM/DL 11.2-15.7 L 410) HEMATOCRIT (BEAKER) (test code = 27.1 % 34.1-44.9 L 411) MEAN CORPUSCULAR VOLUME (BEAKER) 72.1 fL 79.4-94.8 L (test code = 753) MEAN CORPUSCULAR HEMOGLOBIN 22.1 pg 25.6-32.2 L (BEAKER) (test code = 751) MEAN CORPUSCULAR HEMOGLOBIN CONC 30.6 GM/DL 32.2-35.5 L (BEAKER) (test code = 752) RED CELL DISTRIBUTION WIDTH 19.1 % 11.7-14.4 H (BEAKER) (test code = 412) PLATELET COUNT (BEAKER) (test 543 K/CU MM 150-450 H code = 756) MEAN PLATELET VOLUME (BEAKER) 9.5 fL 9.4-12.3 (test code = 754) NUCLEATED RED BLOOD CELLS 0 /100 WBC 0-0 (BEAKER) (test code = 413) NEUTROPHILS RELATIVE PERCENT 62 % (BEAKER) (test code = 429) LYMPHOCYTES RELATIVE PERCENT 23 % (BEAKER) (test code = 430) MONOCYTES RELATIVE PERCENT 12 % (BEAKER) (test code = 431) EOSINOPHILS RELATIVE PERCENT 2 % (BEAKER) (test code = 432) BASOPHILS RELATIVE PERCENT 1 % (BEAKER) (test code = 437) NEUTROPHILS ABSOLUTE COUNT 6.77 K/ L 1.56-6.13 H (BEAKER) (test code = 670) LYMPHOCYTES ABSOLUTE COUNT 2.53 K/ L 1.18-3.74 (BEAKER) (test code = 414) MONOCYTES ABSOLUTE COUNT (BEAKER) 1.32 K/ L 0.24-0.36 H (test code = 415) EOSINOPHILS ABSOLUTE COUNT 0.19 K/ L 0.04-0.36 (BEAKER) (test code = 416) BASOPHILS ABSOLUTE COUNT (BEAKER) 0.11 K/ L 0.01-0.08 H (test code = 417) IMMATURE GRANULOCYTES-RELATIVE 1 % 0-1 PERCENT (BEAKER) (test code = 2801) [id number] 06:25:00 Test Item Value Reference Range Interpretation Comments PHOSPHORUS (BEAKER) (test code = 2.6 mg/dL 2.3-4.7 604) Textile Finisher ID - REZA [id number] 06:25:00 Test Item Value Reference Range Interpretation Comments MAGNESIUM (BEAKER) (test code = 2.1 mg/dL 1.6-2.6 627) Textile Finisher ID - REZA [id number] 06:17:00 Test Item Value Reference Range Interpretation Comments PARTIAL THROMBOPLASTIN TIME 35.9 seconds 22.5-36.0 (BEAKER) (test code = 760) PROTHROMBIN [id number] 06:16:00 Test Item Value Reference Range Interpretation Comments PROTIME (BEAKER) (test code = 14.3 seconds 11.9-14.2 H 759) INR (BEAKER) (test code = 370) 1.1 <=5.9 Effective 07/15/2018: PT Reference Range ChangeNew: 11.9-14.2 Previous: 11.7- 14.7RECOMMENDED COUMADIN/WARFARIN INR THERAPY RANGESSTANDARD DOSE: 2.0-3.0 Includes: PROPHYLAXIS for venous thrombosis, systemic embolization; TREATMENT for venous thrombosis and/or pulmonary embolus.HIGH RISK: Target INR is2.5-3.5 for patients wiht mechanical heart valves.[id number] 21:55:00 Test Item Value Reference Range Interpretation Comments POTASSIUM (BEAKER) (test code = 3.6 meq/L 3.5-5.1 379) Textile Finisher ID - NORA BCheck Serum Potassium level 2 hours after oral potassium replacement completed or 30 min after intravenous potassium replacement. [id number] 21:55:00 Test Item Value Reference Range Interpretation Comments MAGNESIUM (BEAKER) (test code = 2.1 mg/dL 1.6-2.6 627) Textile Finisher ID - NORA BCheck Serum Potassium level 2 hours after oral potassium replacement completed or 30 min after intravenous potassium replacement. [id number] 21:55:00 Test Item Value Reference Range Interpretation Comments PHOSPHORUS (BEAKER) (test code = 2.0 mg/dL 2.3-4.7 L 604) Textile Finisher ID - NORA BCheck Serum Potassium level 2 hours after oral potassium replacement completed or 30 min after intravenous potassium replacement.POCT- GLUCOSE [id number] 18:40:00 Test Item Value Reference Range Interpretation Comments POC-GLUCOSE METER 103 mg/dL 70-110 : TESTED A T [facility] 6720 (BEAKER) (test code = [facility], 1538) [id number]: Textile Finisher/Techni doreen ID = [id number] for GRECIA ROSAS POCT-GLUCOSE [id number] 18:26:00 Test Item Value Reference Range Interpretation Comments POC-GLUCOSE METER 137 mg/dL 70-110 H : TESTED A T [facility] 6720 (BEAKER) (test code = [facility], 1538) [id number]: Textile Finisher/Techni doreen ID = [id number] for GRECIA ROSAS TROPONIN [id number] 13:46:00 Test Item Value Reference Range Interpretation Comments TROPONIN I (BEAKER) (test code = 0.16 ng/mL 0.00-0.03 H 397) Troponin I (TnI) levels must be interpreted in the context of the presenting symptoms and the clinical findings. Elevated TnI levels indicate myocardial damage, but are not specific for ischemic heart disease. Elevated TnI levels are seen in patients with other cardiac conditions (including myocarditis and congestive heart failure), and slight TnI elevations occur in patients with other conditions, including sepsis, renal failure, acidosis, acute neurological disease, and persistent tachyarrhythmia.Textile Finisher ID - BSPOCT-GLUCOSE METER 2019-03-11 06:52:00 Test Item Value Reference Range Interpretation Comments POC-GLUCOSE METER 95 mg/dL 70-110 : TESTED A T [facility] 6720 (BEAKER) (test code = [facility], 1538) [address]: Textile Finisher/Techni doreen ID = [id number] for BRIAN PIÑA TROPONIN [id number] 05:14:00 Test Item Value Reference Range Interpretation Comments TROPONIN I (BEAKER) (test code = 0.19 ng/mL 0.00-0.03 H 397) Troponin I (TnI) levels must be interpreted in the context of the presenting symptoms and the clinical findings. Elevated TnI levels indicate myocardial damage, but are not specific for ischemic heart disease. Elevated TnI levels are seen in patients with other cardiac conditions (including myocarditis and congestive heart failure), and slight TnI elevations occur in patients with other conditions, including sepsis, renal failure, acidosis, acute neurological disease, and persistent tachyarrhythmia.Textile Finisher ID - BSBASIC METABOLIC PANEL 2019-03-11 05:09:00 Test Item Value Reference Range Interpretation Comments SODIUM (BEAKER) (test 136 meq/L 136-145 code = 381) POTASSIUM (BEAKER) 3.1 meq/L 3.5-5.1 L (test code = 379) CHLORIDE (BEAKER) 104 meq/L 98-107 (test code = 382) CO2 (BEAKER) (test 23 meq/L 22-29 code = 355) BLOOD UREA NITROGEN 6 mg/dL 7-21 L (BEAKER) (test code = 354) CREATININE (BEAKER) 0.63 mg/dL 0.57-1.25 (test code = 358) GLUCOSE RANDOM 136 mg/dL 70-105 H (BEAKER) (test code = 652) CALCIUM (BEAKER) 7.9 mg/dL 8.4-10.2 L (test code = 697) EGFR (BEAKER) (test INSUFFIC IENT CLINICAL code = 1092) DATA TO CALCULA TE ESTIMATED GFR. Textile Finisher ID - [id number] 05:07:00 Test Item Value Reference Range Interpretation Comments PHOSPHORUS (BEAKER) (test code = 2.0 mg/dL 2.3-4.7 L 604) Textile Finisher ID - [id number] 05:07:00 Test Item Value Reference Range Interpretation Comments MAGNESIUM (BEAKER) (test code = 1.9 mg/dL 1.6-2.6 627) Textile Finisher ID - BSCBC W/PLT COUNT & AUTO [id number] 04:34:00 Test Item Value Reference Range Interpretation Comments WHITE BLOOD CELL COUNT (BEAKER) 14.8 K/ L 3.5-10.5 H (test code = 775) RED BLOOD CELL COUNT (BEAKER) 3.59 M/ L 3.93-5.22 L (test code = 761) HEMOGLOBIN (BEAKER) (test code = 8.0 GM/DL 11.2-15.7 L 410) HEMATOCRIT (BEAKER) (test code = 25.7 % 34.1-44.9 L 411) MEAN CORPUSCULAR VOLUME (BEAKER) 71.6 fL 79.4-94.8 L (test code = 753) MEAN CORPUSCULAR HEMOGLOBIN 22.3 pg 25.6-32.2 L (BEAKER) (test code = 751) MEAN CORPUSCULAR HEMOGLOBIN CONC 31.1 GM/DL 32.2-35.5 L (BEAKER) (test code = 752) RED CELL DISTRIBUTION WIDTH 18.8 % 11.7-14.4 H (BEAKER) (test code = 412) PLATELET COUNT (BEAKER) (test 542 K/CU MM 150-450 H code = 756) MEAN PLATELET VOLUME (BEAKER) 9.2 fL 9.4-12.3 L (test code = 754) NUCLEATED RED BLOOD CELLS 0 /100 WBC 0-0 (BEAKER) (test code = 413) NEUTROPHILS RELATIVE PERCENT 75 % (BEAKER) (test code = 429) LYMPHOCYTES RELATIVE PERCENT 14 % (BEAKER) (test code = 430) MONOCYTES RELATIVE PERCENT 10 % (BEAKER) (test code = 431) EOSINOPHILS RELATIVE PERCENT 0 % (BEAKER) (test code = 432) BASOPHILS RELATIVE PERCENT 1 % (BEAKER) (test code = 437) NEUTROPHILS ABSOLUTE COUNT 11.11 K/ L 1.56-6.13 H (BEAKER) (test code = 670) LYMPHOCYTES ABSOLUTE COUNT 2.03 K/ L 1.18-3.74 (BEAKER) (test code = 414) MONOCYTES ABSOLUTE COUNT (BEAKER) 1.42 K/ L 0.24-0.36 H (test code = 415) EOSINOPHILS ABSOLUTE COUNT 0.03 K/ L 0.04-0.36 L (BEAKER) (test code = 416) BASOPHILS ABSOLUTE COUNT (BEAKER) 0.09 K/ L 0.01-0.08 H (test code = 417) IMMATURE GRANULOCYTES-RELATIVE 1 % 0-1 PERCENT (BEAKER) (test code = 2801) [id number] 04:34:00 Test Item Value Reference Range Interpretation Comments PARTIAL THROMBOPLASTIN TIME 32.3 seconds 22.5-36.0 (BEAKER) (test code = 760) PROTHROMBIN TIME/[id number] 04:33:00 Test Item Value Reference Range Interpretation Comments PROTIME (BEAKER) (test code = 14.7 seconds 11.9-14.2 H 759) INR (BEAKER) (test code = 370) 1.2 <=5.9 Effective 07/15/2018: PT Reference Range ChangeNew: 11.9-14.2 Previous: 11.7- 14.7RECOMMENDED COUMADIN/WARFARIN INR THERAPY RANGESSTANDARD DOSE: 2.0-3.0 Includes: PROPHYLAXIS for venous thrombosis, systemic embolization; TREATMENT for venous thrombosis and/or pulmonary embolus.HIGH RISK: Target INR is2.5-3.5 for patients wiht mechanical heart valves.TROPONIN [id number] 01:08:00 Test Item Value Reference Range Interpretation Comments TROPONIN I (BEAKER) (test code = 0.22 ng/mL 0.00-0.03 HH 397) Troponin I (TnI) levels must be interpreted in the context of the presenting symptoms and the clinical findings. Elevated TnI levels indicate myocardial damage, but are not specific for ischemic heart disease. Elevated TnI levels are seen in patients with other cardiac conditions (including myocarditis and congestive heart failure), and slight TnI elevations occur in patients with other conditions, including sepsis, renal failure, acidosis, acute neurological disease, and persistent tachyarrhythmia.Textile Finisher ID - BSPOCT-GLUCOSE METER 2019-03-11 00:17:00 Test Item Value Reference Range Interpretation Comments POC-GLUCOSE METER 128 mg/dL 70-110 H : TESTED A T [facility] 6720 (BEJORDAN) (test code = [facility] [place], 1538) [id number]: Textile Finisher/Techni doreen ID = [id number] for BRIAN MENDOZA HEMOGLOBIN AND [id number] 21:22:00 Test Item Value Reference Range Interpretation Comments HEMOGLOBIN (BEAKER) (test code = 6.8 GM/DL 11.2-15.7 L 410) HEMATOCRIT (BEAKER) (test code = 22.5 % 34.1-44.9 L 411) Textile Finisher ID - [id number] [id number] 20:53:00 Test Item Value Reference Range Interpretation Comments TROPONIN I (BEAKER) (test code = 0.14 ng/mL 0.00-0.03 H 397) Troponin I (TnI) levels must be interpreted in the context of the presenting symptoms and the clinical findings. Elevated TnI levels indicate myocardial damage, but are not specific for ischemic heart disease. Elevated TnI levels are seen in patients with other cardiac conditions (including myocarditis and congestive heart failure), and slight TnI elevations occur in patients with other conditions, including sepsis, renal failure, acidosis, acute neurological disease, and persistent tachyarrhythmia.Textile Finisher ID - BSPOCT-GLUCOSE METER 2019-03-10 18:28:00 Test Item Value Reference Range Interpretation Comments POC-GLUCOSE METER 107 mg/dL 70-110 : TESTED A T [facility] 6720 (BEAKER) (test code = [facility], 1538) [address]: Textile Finisher/Techni doreen ID = [id number] for JUNE PERKINS [id number] 15:42:00 Test Item Value Reference Range Interpretation Comments FERRITIN (BEAKER) (test code = 361) 13 ng/mL 5-275 Textile Finisher ID - BSIRON, TIBC, % SAT. (WITHOUT FERRITIN)2019-03-10 15:38:00 Test Item Value Reference Range Interpretation Comments IRON (BEAKER) (test code = 547) 18.0 ug/dL 40.0-160.0 L TOTAL IRON BINDING CAPACITY 419 ug/dL 250-450 (BEAKER) (test code = 769) IRON % SATURATION (2) (BEAKER) 4 % 20-55 L (test code = 2590) Textile Finisher ID - [id number] 15:33:00 Test Item Value Reference Range Interpretation Comments TRANSFERRIN (BEAKER) (test code = 335 mg/dL 174-382 541) Textile Finisher ID - BSIRON, [id number] 15:33:00 Test Item Value Reference Range Interpretation Comments IRON (BEAKER) (test code = 547) 18.0 ug/dL 40.0-160.0 L TROPONIN [id number] 15:28:00 Test Item Value Reference Range Interpretation Comments TROPONIN I (BEAKER) (test code = 0.12 ng/mL 0.00-0.03 H 397) Troponin I (TnI) levels must be interpreted in the context of the presenting symptoms and the clinical findings. Elevated TnI levels indicate myocardial damage, but are not specific for ischemic heart disease. Elevated TnI levels are seen in patients with other cardiac conditions (including myocarditis and congestive heart failure), and slight TnI elevations occur in patients with other conditions, including sepsis, renal failure, acidosis, acute neurological disease, and persistent tachyarrhythmia.Textile Finisher ID - BSCB (HEMOGRAM ONLY) 2019-03-10 14:32:00 Test Item Value Reference Range Interpretation Comments WHITE BLOOD CELL COUNT (BEAKER) 17.4 K/ L 3.5-10.5 H (test code = 775) RED BLOOD CELL COUNT (BEAKER) 3.35 M/ L 3.93-5.22 L (test code = 761) HEMOGLOBIN (BEAKER) (test code = 7.1 GM/DL 11.2-15.7 L 410) HEMATOCRIT (BEAKER) (test code = 23.5 % 34.1-44.9 L 411) MEAN CORPUSCULAR VOLUME (BEAKER) 70.1 fL 79.4-94.8 L (test code = 753) MEAN CORPUSCULAR HEMOGLOBIN 21.2 pg 25.6-32.2 L (BEAKER) (test code = 751) MEAN CORPUSCULAR HEMOGLOBIN CONC 30.2 GM/DL 32.2-35.5 L (BEAKER) (test code = 752) RED CELL DISTRIBUTION WIDTH 17.7 % 11.7-14.4 H (BEAKER) (test code = 412) PLATELET COUNT (BEAKER) (test 598 K/CU MM 150-450 H code = 756) MEAN PLATELET VOLUME (BEAKER) 9.1 fL 9.4-12.3 L (test code = 754) NUCLEATED RED BLOOD CELLS 0 /100 WBC 0-0 (BEAKER) (test code = 413) [id number] 12:00:00 Test Item Value Reference Range Interpretation Comments ACTIVATED CLOTTING TIME 158 sec Refe rence Range: (BEAKER) (test code = 74-137 seconds, 441) Baseline/TESTED AT [facility] [address] [facility] [place] [address] (CELLAVISION MANUAL DIFF)2019-03-10 10:28:00 Test Item Value Reference Range Interpretation Comments NEUTROPHILS - REL 88 % (CELLAVISION)(BEAKER) (test code = 2816) LYMPHOCYTES - REL 9 % (CELLAVISION)(BEAKER) (test code = 2817) MONOCYTES - REL 2 % (CELLAVISION)(BEAKER) (test code = 2818) BASOPHILS - REL 1 % (CELLAVISION)(BEAKER) (test code = 2820) NEUTROPHILS - ABS 18.04 K/ul 1.56-6.13 H (CELLAVISION)(BEAKER) (test code = 2830) LYMPHOCYTES - ABS 1.85 K/ul 1.18-3.74 (CELLAVISION)(BEAKER) (test code = 2831) MONOCYTES - ABS 0.41 K/uL 0.24-0.36 H (CELLAVISION)(BEAKER) (test code = 2832) BASOPHILS - ABS 0.21 K/uL 0.01-0.08 H (CELLAVISION)(BEAKER) (test code = 2835) TOTAL COUNTED (BEAKER) (test code 100 = 1351) WBC MORPHOLOGY (BEAKER) (test code Normal = 487) PLT MORPHOLOGY (BEAKER) (test code Normal = 486) POLYCHROMATOPHILLIC RBCS(BEAKER) 1+ few (test code = 478) HYPOCHROMIA (BEAKER) (test code = 1+ few 963) ANISOCYTOSIS (BEAKER) (test code = 1+ few 961) MICROCYTES (BEAKER) (test code = 1+ few 965) ARTIFACT (CELLAVISION)(BEAKER) Present (test code = 3432) PLATELET CONCENTRATION Increased (CELLAVISION)(BEAKER) (test code = 3438) Textile Finisher ID - Seema OverholtUser comments: Slide comments:POCT-GLUCOSE METER 2019-03-10 06:38:00 Test Item Value Reference Range Interpretation Comments POC-GLUCOSE METER 120 mg/dL 70-110 H : TESTED A T [facility] 6720 (BEAKER) (test code = [place], 1538) [address]: Textile Finisher/Techni doreen ID = [id number] for BRIAN MENDOZA SCREEN, [id number] 06:29:00 Test Item Value Reference Range Interpretation Comments TEST URINE (BEAKER) (test Negative code = 583) BASIC METABOLIC [id number] 05:06:00 Test Item Value Reference Range Interpretation Comments SODIUM (BEAKER) (test 137 meq/L 136-145 code = 381) POTASSIUM (BEAKER) 3.4 meq/L 3.5-5.1 L (test code = 379) CHLORIDE (BEAKER) 109 meq/L 98-107 H (test code = 382) CO2 (BEAKER) (test 23 meq/L 22-29 code = 355) BLOOD UREA NITROGEN 12 mg/dL 7-21 (BEAKER) (test code = 354) CREATININE (BEAKER) 0.73 mg/dL 0.57-1.25 (test code = 358) GLUCOSE RANDOM 114 mg/dL 70-105 H (BEAKER) (test code = 652) CALCIUM (BEAKER) 8.1 mg/dL 8.4-10.2 L (test code = 697) EGFR (BEAKER) (test INSUFFIC IENT CLINICAL code = 1092) DATA TO CALCULA TE ESTIMATED GFR. Textile Finisher ID - REZA MCBC W/PLT COUNT & AUTO [id number] 05:04:00 Test Item Value Reference Range Interpretation Comments WHITE BLOOD CELL COUNT (BEAKER) 20.5 K/ L 3.5-10.5 H (test code = 775) RED BLOOD CELL COUNT (BEAKER) 3.67 M/ L 3.93-5.22 L (test code = 761) HEMOGLOBIN (BEAKER) (test code = 7.6 GM/DL 11.2-15.7 L 410) HEMATOCRIT (BEAKER) (test code = 25.4 % 34.1-44.9 L 411) MEAN CORPUSCULAR VOLUME (BEAKER) 69.2 fL 79.4-94.8 L (test code = 753) MEAN CORPUSCULAR HEMOGLOBIN 20.7 pg 25.6-32.2 L (BEAKER) (test code = 751) MEAN CORPUSCULAR HEMOGLOBIN CONC 29.9 GM/DL 32.2-35.5 L (BEAKER) (test code = 752) RED CELL DISTRIBUTION WIDTH 17.3 % 11.7-14.4 H (BEAKER) (test code = 412) PLATELET COUNT (BEAKER) (test 625 K/CU MM 150-450 H code = 756) MEAN PLATELET VOLUME (BEAKER) 8.5 fL 9.4-12.3 L (test code = 754) NUCLEATED RED BLOOD CELLS 0 /100 WBC 0-0 (BEAKER) (test code = 413) [id number] 05:03:00 Test Item Value Reference Range Interpretation Comments PHOSPHORUS (BEAKER) (test code = 2.8 mg/dL 2.3-4.7 604) Textile Finisher ID - REZA [id number] 05:03:00 Test Item Value Reference Range Interpretation Comments MAGNESIUM (BEAKER) (test code = 2.2 mg/dL 1.6-2.6 627) Textile Finisher ID - REZA MLIPID [id number] 05:03:00 Test Item Value Reference Range Interpretation Comments TRIGLYCERIDES (BEAKER) (test code = 60 mg/dL 540) CHOLESTEROL (BEAKER) (test code = 156 mg/dL 631) HDL CHOLESTEROL (BEAKER) (test code 68 mg/dL = 976) LDL CHOLESTEROL CALCULATED (BEAKER) 76 mg/dL (test code = 633) Triglyceride Reference Range: Low Risk <150 Borderline 150-199 High Risk 200-499 Very High Risk >=500Cholesterol Reference Range: Low Risk <200 Borderline 200-239 High Risk >240HDL Cholesterol Reference Range: Low Risk >=60 High Risk <40LDL Cholesterol Reference Range: Optimal <100 Near Optimal 100-129 Borderline 130-159 High 160-189 Very High >=190 Textile Finisher ID - REZA [id number] 04:56:00 Test Item Value Reference Range Interpretation Comments PARTIAL THROMBOPLASTIN TIME 29.8 seconds 22.5-36.0 (BEAKER) (test code = 760) PROTHROMBIN [id number] 04:55:00 Test Item Value Reference Range Interpretation Comments PROTIME (BEAKER) (test code = 14.6 seconds 11.9-14.2 H 759) INR (BEAKER) (test code = 370) 1.2 <=5.9 Effective 07/15/2018: PT Reference Range ChangeNew: 11.9-14.2 Previous: 11.7- 14.7RECOMMENDED COUMADIN/WARFARIN INR THERAPY RANGESSTANDARD DOSE: 2.0-3.0 Includes: PROPHYLAXIS for venous thrombosis, systemic embolization; TREATMENT for venous thrombosis and/or pulmonary embolus.HIGH RISK: Target INR is2.5-3.5 for patients wiht mechanical heart valves.TROPONIN [id number] 02:10:00 Test Item Value Reference Range Interpretation Comments TROPONIN I (BEAKER) (test code = 0.07 ng/mL 0.00-0.03 H 397) Troponin I (TnI) levels must be interpreted in the context of the presenting symptoms and the clinical findings. Elevated TnI levels indicate myocardial damage, but are not specific for ischemic heart disease. Elevated TnI levels are seen in patients with other cardiac conditions (including myocarditis and congestive heart failure), and slight TnI elevations occur in patients with other conditions, including sepsis, renal failure, acidosis, acute neurological disease, and persistent tachyarrhythmia.Textile Finisher ID - [id number] METER 2019-03-09 22:16:00 Test Item Value Reference Range Interpretation Comments POC-GLUCOSE METER 107 mg/dL 70-110 : TESTED A T [facility] 6720 (BEAKER) (test code = STAS HAGER ME, 1538) [address]: Textile Finisher/Techni doreen ID = [id number] for BRIAN MENDOZA URINALYSIS W/ REFLEX URINE [id number] 21:39:00 Test Item Value Reference Range Interpretation Comments COLOR (BEAKER) (test code = 470) Light Yellow CLARITY (BEAKER) (test code = Clear 469) SPECIFIC GRAVITY UA (BEAKER) 1.010 1.001-1.035 (test code = 468) PH UA (BEAKER) (test code = 467) 6.5 5.0-8.0 PROTEIN UA (BEAKER) (test code = Negative Negative 464) GLUCOSE UA (BEAKER) (test code = 70 mg/dL Negative A 365) KETONES UA (BEAKER) (test code = Negative Negative 371) BILIRUBIN UA (BEAKER) (test code Negative Negative = 462) BLOOD UA (BEAKER) (test code = Negative Negative 461) NITRITE UA (BEAKER) (test code = Negative Negative 465) LEUKOCYTE ESTERASE UA (BEAKER) Negative Negative (test code = 466) UROBILINOGEN UA (BEAKER) (test 0.2 mg/dL 0.2-1.0 code = 463) RBC UA (BEAKER) (test code = < /HPF 519) WBC UA (BEAKER) (test code = 1 /HPF 520) MUCUS (BEAKER) (test code = Rare 1574) SQUAMOUS EPITHELIAL (BEAKER) < /HPF (test code = 516) SOURCE(BEAKER) (test code = 2795) Textile Finisher ID - [auto]Textile Finisher ID - tech(CELLAVISION MANUAL DIFF)2019-03-09 21:09:00 Test Item Value Reference Range Interpretation Comments NEUTROPHILS - REL 93 % (CELLAVISION)(BEAKER) (test code = 2816) LYMPHOCYTES - REL 5 % (CELLAVISION)(BEAKER) (test code = 2817) MONOCYTES - REL 1 % (CELLAVISION)(BEAKER) (test code = 2818) ATYPICAL LYMPHOCYTES - REL 1 % 0-0 H (CELLAVISION)(BEAKER) (test code = 2829) NEUTROPHILS - ABS 21.11 K/ul 1.56-6.13 H (CELLAVISION)(BEAKER) (test code = 2830) LYMPHOCYTES - ABS 1.14 K/ul 1.18-3.74 L (CELLAVISION)(BEAKER) (test code = 2831) MONOCYTES - ABS 0.23 K/uL 0.24-0.36 L (CELLAVISION)(BEAKER) (test code = 2832) ATYPICAL LYMPHOCYTES - ABS 0.23 K/uL 0.00-0.00 H (CELLAVISION)(BEAKER) (test code = 2858) TOTAL COUNTED (BEAKER) (test code 100 = 1351) WBC MORPHOLOGY (BEAKER) (test Normal code = 487) GIANT PLATELETS (BEAKER) (test Present code = 313) POLYCHROMATOPHILLIC RBCS(BEAKER) 1+ few (test code = 478) HYPOCHROMIA (BEAKER) (test code = 2+ moderate 963) ANISOCYTOSIS (BEAKER) (test code 1+ few = 961) MICROCYTES (BEAKER) (test code = 1+ few 965) POIKILOCYTES (BEAKER) (test code 1+ few = 966) ELLIPTOCYTES (BEAKER) (test code 1+ few = 962) HELMET CELLS 1+ few (CELLAVISION)(BEAKER) (test code = 3434) PLATELET CONCENTRATION Increased (CELLAVISION)(BEAKER) (test code = 3438) Textile Finisher ID - [place] comments: Slide comments:TROPONIN [id number] 20:58:00 Test Item Value Reference Range Interpretation Comments TROPONIN I (BEAKER) (test code = 397) < ng/mL 0.00-0.03 Troponin I (TnI) levels must be interpreted in the context of the presenting symptoms and the clinical findings. Elevated TnI levels indicate myocardial damage, but are not specific for ischemic heart disease. Elevated TnI levels are seen in patients with other cardiac conditions (including myocarditis and congestive heart failure), and slight TnI elevations occur in patients with other conditions, including sepsis, renal failure, acidosis, acute neurological disease, and persistent tachyarrhythmia.Textile Finisher ID - BSBASIC METABOLIC PANEL 2019-03-09 20:54:00 Test Item Value Reference Range Interpretation Comments SODIUM (BEAKER) (test 138 meq/L 136-145 code = 381) POTASSIUM (BEAKER) 3.4 meq/L 3.5-5.1 L (test code = 379) CHLORIDE (BEAKER) 108 meq/L 98-107 H (test code = 382) CO2 (BEAKER) (test 21 meq/L 22-29 L code = 355) BLOOD UREA NITROGEN 12 mg/dL 7-21 (BEAKER) (test code = 354) CREATININE (BEAKER) 0.82 mg/dL 0.57-1.25 (test code = 358) GLUCOSE RANDOM 137 mg/dL 70-105 H (BEAKER) (test code = 652) CALCIUM (BEAKER) 8.3 mg/dL 8.4-10.2 L (test code = 697) EGFR (BEAKER) (test INSUFFIC IENT CLINICAL code = 1092) DATA TO CALCULA TE ESTIMATED GFR. Textile Finisher ID - [id number] 20:51:00 Test Item Value Reference Range Interpretation Comments PHOSPHORUS (BEAKER) (test code = 2.2 mg/dL 2.3-4.7 L 604) Textile Finisher ID - [id number] 20:51:00 Test Item Value Reference Range Interpretation Comments MAGNESIUM (BEAKER) (test code = 1.5 mg/dL 1.6-2.6 L 627) Textile Finisher ID - BSHEPATIC FUNCTION [id number] 20:51:00 Test Item Value Reference Range Interpretation Comments TOTAL PROTEIN (BEAKER) (test code = 7.2 gm/dL 6.0-8.3 770) ALBUMIN (BEAKER) (test code = 1145) 4.1 g/dL 3.5-5.0 BILIRUBIN TOTAL (BEAKER) (test code 0.2 mg/dL 0.2-1.2 = 377) BILIRUBIN DIRECT (BEAKER) (test 0.2 mg/dL 0.1-0.5 code = 706) ALKALINE PHOSPHATASE (BEAKER) (test 85 U/L 40-150 code = 346) AST (SGOT) (BEAKER) (test code = 23 U/L 5-34 353) ALT (SGPT) (BEAKER) (test code = 19 U/L 6-55 347) Textile Finisher ID - [id number] 20:48:00 Test Item Value Reference Range Interpretation Comments PROTIME (BEAKER) (test code = 14.1 seconds 11.9-14.2 759) INR (BEAKER) (test code = 370) 1.1 <=5.9 PARTIAL THROMBOPLASTIN TIME 27.3 seconds 22.5-36.0 (BEAKER) (test code = 760) Effective 07/15/2018: PT Reference Range ChangeNew: 11.9-14.2 Previous: 11.7- 14.7RECOMMENDED COUMADIN/WARFARIN INR THERAPY RANGESSTANDARD DOSE: 2.0-3.0 Includes: PROPHYLAXIS for venous thrombosis, systemic embolization; TREATMENT for venous thrombosis and/or pulmonary embolus.HIGH RISK: Target INR is2.5-3.5 for patients wiht mechanical heart valves.CBC W/PLT COUNT & AUTO [id number] 20:37:00 Test Item Value Reference Range Interpretation Comments WHITE BLOOD CELL COUNT (BEAKER) 22.7 K/ L 3.5-10.5 H (test code = 775) RED BLOOD CELL COUNT (BEAKER) 3.78 M/ L 3.93-5.22 L (test code = 761) HEMOGLOBIN (BEAKER) (test code = 8.0 GM/DL 11.2-15.7 L 410) HEMATOCRIT (BEAKER) (test code = 26.4 % 34.1-44.9 L 411) MEAN CORPUSCULAR VOLUME (BEAKER) 69.8 fL 79.4-94.8 L (test code = 753) MEAN CORPUSCULAR HEMOGLOBIN 21.2 pg 25.6-32.2 L (BEAKER) (test code = 751) MEAN CORPUSCULAR HEMOGLOBIN CONC 30.3 GM/DL 32.2-35.5 L (BEAKER) (test code = 752) RED CELL DISTRIBUTION WIDTH 17.3 % 11.7-14.4 H (BEAKER) (test code = 412) PLATELET COUNT (BEAKER) (test 674 K/CU MM 150-450 H code = 756) MEAN PLATELET VOLUME (BEAKER) 8.8 fL 9.4-12.3 L (test code = 754) NUCLEATED RED BLOOD CELLS 0 /100 WBC 0-0 (BEAKER) (test code = 413) NEUTROPHILS RELATIVE PERCENT 90 % (BEAKER) (test code = 429) LYMPHOCYTES RELATIVE PERCENT 5 % (BEAKER) (test code = 430) MONOCYTES RELATIVE PERCENT 5 % (BEAKER) (test code = 431) EOSINOPHILS RELATIVE PERCENT 0 % (BEAKER) (test code = 432) BASOPHILS RELATIVE PERCENT 1 % (BEAKER) (test code = 437) NEUTROPHILS ABSOLUTE COUNT 20.32 K/ L 1.56-6.13 H (BEAKER) (test code = 670) LYMPHOCYTES ABSOLUTE COUNT 1.12 K/ L 1.18-3.74 L (BEAKER) (test code = 414) MONOCYTES ABSOLUTE COUNT (BEAKER) 1.02 K/ L 0.24-0.36 H (test code = 415) EOSINOPHILS ABSOLUTE COUNT 0.00 K/ L 0.04-0.36 L (BEAKER) (test code = 416) BASOPHILS ABSOLUTE COUNT (BEAKER) 0.11 K/ L 0.01-0.08 H (test code = 417) IMMATURE GRANULOCYTES-RELATIVE 1 % 0-1 PERCENT (BEAKER) (test code = 2801) CT, CAROTID, [id number] 18:39:00FINAL REPORT CLINICAL HISTORY: Carotid or vertebral dissection suspectedsubarachnoid hemorrhage TECHNIQUE: Initially, noncontrast head CT images were performed. Contiguous contrast-enhanced axial images through the neck followed by axial images through the head with coronal and sagittal reformations to assess the arterial circulation. 3-D reconstructions were performed using a volume rendered technique separately on a workstation. This exam was performed according to the departmental dose optimization program which includes automated exposure control, adjustment of the mA and/or kV according to the patient size, and/or use of an iterative reconstruction technique. Stenosis evaluation reported in compliance with NASCET criteria. COMPARISON: None FINDINGS: CTA head:Extensive subarachnoid hemorrhage involving the right frontal and temporal sulci. Small amount of subarachnoidhemorrhage within the left sylvian fissure. Trace intraventricular extension into the fourth ventricle. Mildly prominent temporal horns. No significant mass effect. No evidence of acute territorial infarct. The skull is intact. There is a large multilobed saccular right MCA aneurysm, with the saccular portion measuring up to 6 mm and a 1 to 2 mm neck in the region of the MCA bifurcation. No major branch vessel occlusion or high-grade focal stenosis. There are prominent bilateral P-comm's. The majorintradural venous sinuses are patent. CTA neck:Great vessel origins: No occlusion or high-grade stenosis. Carotid arteries: No occlusion or high-grade stenosis. Vertebral arteries: No occlusion or high-grade stenosis. Left vertebral artery originates from the aortic arch. No fracture or suspicious osseous lesion. Cervical soft tissues are unremarkable. Visualized lung apices are clear. IMPRESSION :1.Subarachnoid hemorrhage involving the right frontal and temporal sulci, as well as within the left sylvian fissure. Trace extension into the fourth ventricle. Mildly prominent temporal horns, but noprior imaging is available to assess for hydrocephalus.2.Large right MCA bifurcation multi lobed saccular aneurysm, measuring up to 6 mm with a 1 to 2 mm neck. These findings were discussed with Dr. LUANA MARSHALL MD on 03/09/2019 6:31 PM. Signed: Renetta Cho [facility] Verified Date/Time: 03/09/2019 18:39:28 [facility] [id number] 18:39:00FINAL REPORT CLINICAL HISTORY: Carotid or vertebral dissection suspectedsubarachnoid hemorrhage TECHNIQUE: Initially, noncontrast head CT images were performed. Contiguous contrast-enhanced axial images through the neck followed by axial images through the head with coronal and sagittal reformations to assess the arterial circulation. 3-D reconstructions were performed using a volume rendered technique separately on a workstation. This exam was performed according to the departmental dose optimization program which includes automated exposure control, adjustment of the mA and/or kV according to the patient size, and/or use of an iterative reconstruction technique. Stenosis evaluation reported in compliance with NASCET criteria. COMPARISON: None FINDINGS: CTA head:Extensive subarachnoid hemorrhage involving the right frontal and temporal sulci. Small amount of subarachnoidhemorrhage within the left sylvian fissure. Trace intraventricular extension into the fourth ventricle. Mildly prominent temporal horns. No significant mass effect. No evidence of acute territorial infarct. The skull is intact. There is a large multilobed saccular right MCA aneurysm, with the saccular portion measuring up to 6 mm and a 1 to 2 mm neck in the region of the MCA bifurcation. No major branch vessel occlusion or high-grade focal stenosis. There are prominent bilateral P-comm's. The majorintradural venous sinuses are patent. CTA neck:Great vessel origins: No occlusion or high-grade stenosis. Carotid arteries: No occlusion or high-grade stenosis. Vertebral arteries: No occlusion or high-grade stenosis. Left vertebral artery originates from the aortic arch. No fracture or suspicious osseous lesion. Cervical soft tissues are unremarkable. Visualized lung apices are clear. IMPRESSION :1.Subarachnoid hemorrhage involving the right frontal and temporal sulci, as well as within the left sylvian fissure. Trace extension into the fourth ventricle. Mildly prominent temporal horns, but noprior imaging is available to assess for hydrocephalus.2.Large right MCA bifurcation multi lobed saccular aneurysm, measuring up to 6 mm with a 1 to 2 mm neck. These findings were discussed with Dr. LUANA MARSHALL MD on 03/09/2019 6:31 PM. Signed: [facility] Verified Date/Time: 03/09/2019 18:39:28
[2019-07-03 14:00] LABS: Absolute Lymphocytes (CBC) 1.7 K/uL (0.7-4.9); Lymphocytes % 25.3 % (15.3-44.8); MPV 7.5 fL (7.6-11.3); RBC Red Blood Cell Count 4.87 M/uL (3.86-4.86)
[2019-07-03 14:04] LABS: Protime INR 0.98
[2019-07-03 14:13] LABS: Potassium 4.1 mmol/L (3.5-5.1)
[2019-07-03 14:26] LABS: Anisocytosis 1+; Blood Morphology Comment NOTED (NOT SEEN); Platelet Estimate INCR; Urine White Blood Cell Casts OK
--- NOTE | 2019-07-03 15:02 | RAD REPORT ---
EXAM DESCRIPTION: CT - Head Brain Wo Cont - 07/03/2019 2:41 pm CLINICAL HISTORY: diplopia, hypertension, history of aneurysm repair COMPARISON: Head Brain Wo Cont dated 03/09/2019 TECHNIQUE: Axial 5 mm thick images of the head were obtained without IV contrast. All CT scans are performed using dose optimization technique as appropriate and may include automated exposure control or mA/KV adjustment according to patient size. FINDINGS: No intracranial hemorrhage, mass, edema or shift of mid-line structures. No acute cortical based infarction. No abnormal extra-axial fluid collections. Ventricles are normal. Focal hyperdensi ty is present in the right sylvian fissure from prior endovascular treatment of a right MCA aneurysm. Mastoid air cells and visualized portions of the paranasal sinuses are clear. No acute bony findings. IMPRESSION: Negative non-contrast CT head examination for acute finding. Since prior imaging patient has undergone endovascular treatment of a right MCA aneurysm.
--- NOTE | 2019-07-03 15:05 | RAD REPORT ---
EXAM DESCRIPTION: CT - Neck Angio - 07/03/2019 2:42 pm CLINICAL HISTORY: diplopia, hx of anuerysm TECHNIQUE: During dynamic enhancement using nonionic IV contrast, axial 2 mm thick images of the nec k were obtained. Sagittal and axial reconstruction images were generated using MIP technique and revi ewed. All CT scans are performed using dose optimization technique as appropriate and may include automated exposure control or mA/KV adjustment according to patient size. FINDINGS: No aneurysm or vascular malformation identified. No carotid or vertebral dissection. No aortic arch or great vessel origin abnormality seen. Left vertebral artery arises from the aortic arch is a normal variant. Vertebral artery origins unremarkable as well. No stenosis, vasculitis or o ther significant carotid artery finding. Tortuosity is present. No vasculitis findings. No focal abno rmality of either vertebral artery. Basilar artery is normal. IMPRESSION: Negative CT angio neck examination for acute or significant finding.
--- NOTE | 2019-07-03 15:07 | RAD REPORT ---
EXAM DESCRIPTION: CT - Head angio - 07/03/2019 2:42 pm CLINICAL HISTORY: diplopia, hx of aneurysm TECHNIQUE: During dynamic enhancement using nonionic IV contrast, axial 1 millimeter thick images of the head were obtained. Sagittal and axial reconstruction images were generated using MIP technique and reviewed. All CT scans are performed using dose optimization technique as appropriate and may include automated exposure control or mA/KV adjustment according to patient size. FINDINGS: No aneurysm or vascular malformation identified. Major venous sinuses are patent. No stenosis, named branch occlusion, vasculitis or other significant vascular finding identifiable. P atient is status post endovascular treatment of the right middle cerebral artery aneurysm. Anterior c ommunicating artery is present. The dominant right posterior communicating artery is present. IMPRESSION: Negative CT angio head examination for acute finding.
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
--- NOTE | 2019-07-03 15:20 | EDPHYS ---
Physician Documentation [facility] Name: Gabriella Herman Age: 44 yrs Sex: Female : 1975 Arrival Date: 07/03/2019 Time: 13:30 Bed 18 Private MD: ED Physician Yves Connors HPI: 07/02 13:36 This 44 yrs old Female presents to ER via Unassigned with complaints of high rn blood pressure, double vision. 14:18 reports headache since yesterday, woke up with double vision today that goes away when rn covering either eye. No fever/trauma. Had to get in between an argument and blood pressure ran high, has hx of cerebral aneurysm with bleed so came to get checked. + right sided headache, not as bad as before. No focal weakness/numbness/speech problem. can see out of each eye individually fine.. Onset: The symptoms/episode began/occurred yesterday. Severity of symptoms: At their worst the symptoms were mild in the emergency department the symptoms are unchanged. The patient has experienced a previous episode. The patient has not recently seen a physician. Historical: - Allergies: 13:30 No Known Allergies; aa5 - Home Meds: 13:30 amlodipine 5 mg tab once daily [Active]; losartan 50 mg oral tab 1 tab once daily aa5 [Active]; - PMHx: 13:30 Hypertension; aa5 13:30 Brain Aneurysm; aa5 - PSHx: 13:30 Tubal ligation; aa5 13:30 Brain Aneurysm coiled; aa5 - Immunization history:: Adult Immunizations unknown. - Social history:: Smoking status: Patient reports the use of cigarette tobacco products, smokes one-half pack cigarettes per day. - Family history:: not pertinent. - Hospitalizations: : No recent hospitalization is reported. ROS: 14:18 Constitutional: Negative for fever, chills, and weight loss, Eyes: Negative for injury, rn pain, redness, and discharge, Neck: Negative for injury, pain, and swelling, Cardiovascular: Negative for chest pain, palpitations, and edema, Respiratory: Negative for shortness of breath, cough, wheezing, and pleuritic chest pain, Abdomen/GI: Negative for abdominal pain, nausea, vomiting, diarrhea, and constipation, Back: Negative for injury and pain, MS/Extremity: Negative for injury and deformity, Skin: Negative for injury, rash, and discoloration, Neuro: Negative for weakness, numbness, tingling, and seizure. Exam: 13:53 ECG was reviewed by the Attending Physician. rn 14:18 Constitutional: This is a well developed, well nourished patient who is awake, alert, rn and in no acute distress. Head/Face: Normocephalic, atraumatic. Eyes: Pupils equal round and reactive to light, extra-ocular motions intact. Lids and lashes normal. Conjunctiva and sclera are non-icteric and not injected. Cornea within normal limits. Periorbital areas with no swelling, redness, or edema. No nystagmus. Cardiovascular: Regular rate and rhythm. No pulse deficits. Respiratory: Speaking full sentences. No increased work of breathing, no retractions or nasal flaring. Skin: Warm, dry MS/ Extremity: Pulses equal, no cyanosis. Neurovascular intact. Full, normal range of motion. Equal circumference. Neuro: Awake and alert, GCS 15, oriented to person, place, time, and situation. Cranial nerves II-XII grossly intact. Motor strength 5/5 in all extremities. Sensory grossly intact. Cerebellar exam normal. Vital Signs: 13:30 BP 180 / 139; Pulse 79; Resp 18 S; Temp 98.6(O); Pulse Ox 97% on R/A; Weight 68.49 kg aa5 (R); Height 5 ft. 4 in. (162.56 cm) (R); Pain 2/10; 14:08 BP 147 / 83; Pulse 78; Resp 18 S; Pulse Ox 97% on R/A; aa5 14:52 BP 166 / 92; Pulse 80; Resp 18 S; Pulse Ox 100% on R/A; aa5 15:30 BP 153 / 84; Pulse 75; Resp 16 S; Pulse Ox 100% on R/A; Pain 2/10; aa5 13:30 Body Mass Index 25.92 (68.49 kg, 162.56 cm) aa5 MDM: 13:33 Patient medically screened. rn 15:17 Differential Diagnosis hypertension, Aneurysm, diplopia 2/2 central or peripheral rn causes.. Data reviewed: vital signs, nurses notes, lab test result(s), radiologic studies, CT scan, and as a result, I will discharge patient. Counseling: I had a detailed discussion with the patient and/or guardian regarding: the historical points, exam findings, and any diagnostic results supporting the discharge/admit diagnosis, lab results, radiology results, the need for outpatient follow up, to return to the emergency department if symptoms worsen or persist or if there are any questions or concerns that arise at home. Response to treatment: the patient's symptoms have mildly improved after treatment. Admission orders: after a detailed discussion of the patient's condition and case, the admit orders are written by me. ED course: CT head and ct angio neg for acute findings, BP improving, will dc home with Dr. Foster f/u as she already has appt. Return precautions given and understood. Symptoms began yesterday with some improvement. . 07/02 13:35 Order name: CBC with Diff; Complete Time: 14:37 rn 07/02 13:35 Order name: Basic Metabolic Panel; Complete Time: 14:18 rn 07/02 13:35 Order name: Protime (+inr); Complete Time: 14:18 rn 07/02 13:35 Order name: Ptt, Activated; Complete Time: 14:18 rn 07/02 13:35 Order name: CT Head Brain wo Cont; Complete Time: 15:08 rn 07/02 14:26 Order name: CBC Smear Scan; Complete Time: 14:37 EDMS 07/02 13:35 Order name: IV Start; Complete Time: 14:08 rn 07/02 13:35 Order name: CT Head Angio; Complete Time: 15:08 rn 07/02 13:35 Order name: CT Neck Angio; Complete Time: 15:08 rn 07/02 13:35 Order name: EKG; Complete Time: 13:35 rn 07/02 13:35 Order name: EKG - Nurse/Tech; Complete Time: 14:08 rn EC:53 Rate is 77 beats/min. Rhythm is regular. QRS [place] is Normal. DE interval is normal. QRS rn interval is normal. QT interval is normal. No Q waves. T waves are Normal. No ST changes noted. Clinical impression: Normal ECG. Interpreted by me. Reviewed by me. Administered Medications: No medications were administered Disposition: 07/03/19 15:19 Discharged to Home. Impression: Headache, Diplopia, Hypertension. - Condition is Stable. - Discharge Instructions: Diplopia, General Headache Without Cause, Hypertension. - Medication Reconciliation Form, Thank You Letter, Antibiotic Education, Prescription Opioid Use form. - Follow up: Weston Foster MD; When: As needed; Reason: Recheck today's complaints, Re-evaluation by your physician. - Problem is new. - Symptoms have improved. Signatures: Dispatcher [employer] Brianna Lynne RN RN Yves Pak MD MD rn Calderon, Audri, MARK RN aa5 Corrections: (The following items were deleted from the chart) 15:43 15:19 07/03/2019 15:19 Discharged to Home. Impression: Headache; Diplopia; iw Hypertension. Condition is Stable. Forms are Medication Reconciliation Form, Thank You Letter, Antibiotic Education, Prescription Opioid Use. Follow up: Weston Foster; When: As needed; Reason: Recheck today's complaints, Re-evaluation by your physician. Problem is new. Symptoms have improved. rn
[2019-07-03 15:49] VITALS: TEMP 98.6
[2019-07-03 15:52] VITALS: BP 166/92; O2SAT 100
--- NOTE | 2019-07-04 07:12 | EKG ---
Test Date: 2019-07-03 Test Time: 13:45:58 Critical Care Physician Assistant: DES MEASUREMENT RESULTS: Intervals: Rate: 77 PA: 154 QRSD: 90 QT: 374 QTc: 423 [place]: P: -8 PA: 154 QRS: -19 T: 58 INTERPRETIVE STATEMENTS: Normal sinus rhythm Normal ECG Compared to ECG 03/03/2019 04:51:14 Left ventricular hypertrophy no longer present Electronically Signed On 07-04-19 07:11:11 CDT by Ben Hadley
== END 2019-07-03 15:43 | disposition home or self-care (01) ==
LOC: ER 13:29
DX: H53.2 Diplopia (principal); I10 Essential (primary) hypertension; F17.210 Nicotine dependence, cigarettes, uncomplicated
CPT/HCPCS: 93005; 85025; 80048; 36415; 85610; 85730; 70450; 70496; 70498; 99284; Q9967